=== PATIENT | female | born 1955 | race African-American/Black ===

== ENCOUNTER 2017-07-01 18:10 | Inpatient (IN) ==
[2017-07-01] MEDS ORDERED: levETIRAcetam 500 MG TABLET PO STA (18:56)
[2017-07-01 19:09] LABS: Basophils % 0.2 % (0.0-0.8); Eosinophils % 0.1 % (0.00-10.9); Hematocrit 28.7 VOL% (35.7-47.0); Hemoglobin 9.6 GM/DL (12.0-16.0); Immature Granulocytes % 0.5 %; Immature Granulocytes Absolute 0.12 #; Lymphocytes # 0.8 10*3/uL (1.4-4.0); Lymphocytes % 3.3 % (21.3-54.2); Mean Corpuscular HGB Conc 33.4 GM/DL (32-36); Mean Corpuscular Hemoglobin 31 PG (27-34); Mean Corpuscular Volume 91.1 FL (87-102); Mean Platelet Volume 8.4 FL (9.6-12.0); Monocytes # 0.5 10*3/uL (0.11-0.8); Neutrophils # 22.6 10*3/uL (1.4-7.4); Neutrophils % 93.9 % (38.7-73.9); Platelet Count 300 T/CUMM (130-400); Red Blood Count 3.15 MC/CUMM (3.8-5.5); Red Cell Distribution Width 15.9 % (9.3-17.3); White Blood Count 24.1 T/CUMM (4-12)
[2017-07-01 19:46] LABS: Albumin 2.6 G/DL (3.4-5.0); Bilirubin,Total 0.4 MG/DL (0.2-1.0); Calcium 7.8 MG/DL (8.5-10.1); Osmolality,Calculated 275.7 MOS/KG (273-304); Potassium 3.9 MMOL/L (3.5-5.1); Total Protein 7.7 G/DL (6.4-8.3)
[2017-07-01] MEDS ORDERED: VANCOMYCIN INJ 1,000 MG in SODIUM CHLORIDE 0.9% 250 ML IV STA (20:02)
[2017-07-01] MEDS ORDERED: CEFEPIME 2,000 MG in SODIUM CHLORIDE 0.9% 100 ML IV STA (20:02)
[2017-07-01] MEDS ORDERED: SODIUM CHLORIDE 0.9% 2,950 ML IV ONE (20:17)
[2017-07-01 20:18] LABS: Apearance,Urine Slightly Hazy (Clear); Bacteria,Urine Many /HPF (Few); Bilirubin,Urine Negative (Negative); Blood, Urine Moderate mg/dL (Negative); Glucose,Urine (UA) Negative (Negative); Ketones,Urine Negative (Negative); Mucus,Urine Few /LPF (Occasional); Nitrite,Urine Positive (Negative); Protein,Urine 30 MG/DL; RBC,Urine 1 /HPF (0-4); Squamous Epithelial Cell,Urine Occasional /HPF (0-10); Urine Color Yellow (Yellow); Urine Specific Gravity 1.019 (1.001-1.035); WBC,Urine 21 /HPF (0-6)
[2017-07-01] MEDS ORDERED: ONDANSETRON 4 MG/2 ML VIAL IV PRN (20:19)
[2017-07-01 20:59] LABS: Band Neutrophils 4 % (0-10); Lymphocytes 7 % (20-55); Platelet Estimate Normal; Segmented Neutrophils 89 % (50-85); Total Cells Counted 100
[2017-07-01] MEDS ORDERED: VANCOMYCIN 1,000 MG VIAL ONE (21:11)
[2017-07-01] MEDS: SODIUM CHLORIDE 0.9% 1,000 ML IV SCH (21:30)
[2017-07-02] MEDS: ACETAMINOPHEN 325 MG TABLET PO PRN
[2017-07-02] MEDS: SODIUM CHLORIDE 0.9% 1,000 ML IV SCH ×2 (06:27→16:57)
[2017-07-02] MEDS: PANTOPRAZOLE 40 MG TABLET PO SCH (09:06)
[2017-07-02] MEDS ORDERED: FUROSEMIDE 40 MG TABLET PO PRN (16:57)
[2017-07-02] MEDS: VENLAFAXINE 100 MG TABLET PO SCH (17:24)
[2017-07-02] MEDS: DEXT 5% NACL 0.45% KCL 10 MEQ 10 MEQ/1,000 ML BAG IV SCH (17:24)
[2017-07-02 19:06] LABS: INR 1.3; PT Patient Result 13.3 SECS; Partial Thromboplastin Time 33.6 SECS (0-40)
[2017-07-02] MEDS: levETIRAcetam 250 MG TABLET PO SCH (20:35)
[2017-07-02] MEDS: PHENYTOIN ER 100 MG CAPSULE PO SCH (20:35)
[2017-07-02] MEDS: TOPIRAMATE 100 MG TABLET PO SCH (20:35)
[2017-07-03] MEDS: WARFARIN 5 MG TABLET PO SCH ×2 (00:56→15:15)
[2017-07-03] MEDS: DEXT 5% NACL 0.45% KCL 10 MEQ 10 MEQ/1,000 ML BAG IV SCH ×2 (02:48→21:37)
[2017-07-03 07:20] LABS: Basophils % 0.1 % (0.0-0.8); Eosinophils # 0.2 10*3/uL (0.0-0.87); Eosinophils % 1.4 % (0.00-10.9); Hematocrit 25.9 VOL% (35.7-47.0); Hemoglobin 8.6 GM/DL (12.0-16.0); Immature Granulocytes % 0.7 %; Immature Granulocytes Absolute 0.09 #; Lymphocytes # 1.5 10*3/uL (1.4-4.0); Lymphocytes % 11.1 % (21.3-54.2); Mean Corpuscular HGB Conc 33.2 GM/DL (32-36); Mean Corpuscular Hemoglobin 30 PG (27-34); Mean Corpuscular Volume 90.6 FL (87-102); Mean Platelet Volume 8.7 FL (9.6-12.0); Monocytes # 0.7 10*3/uL (0.11-0.8); Monocytes % 5.1 % (1.7-12.7); Neutrophils # 11.1 10*3/uL (1.4-7.4); Neutrophils % 81.6 % (38.7-73.9); Platelet Count 262 T/CUMM (130-400); Red Blood Count 2.86 MC/CUMM (3.8-5.5); Red Cell Distribution Width 15.9 % (9.3-17.3); White Blood Count 13.6 T/CUMM (4-12)
[2017-07-03 08:03] LABS: Albumin 2.1 G/DL (3.4-5.0); Bilirubin,Total 0.5 MG/DL (0.2-1.0); Calcium 7.5 MG/DL (8.5-10.1); Free T4 (Free Thyroxine) 1.19 NG/DL (0.76-1.46); Osmolality,Calculated 278.3 MOS/KG (273-304); Potassium 3.7 MMOL/L (3.5-5.1); Thyroid Stimulating Hormone 0.76 uIU/ml (0.358-3.74); Total Protein 6.9 G/DL (6.4-8.3)
[2017-07-03] MEDS: TOPIRAMATE 100 MG TABLET PO SCH ×2 (10:19→20:51)
[2017-07-03] MEDS: VENLAFAXINE 100 MG TABLET PO SCH ×2 (10:19→17:59)
[2017-07-03] MEDS: levETIRAcetam 250 MG TABLET PO SCH ×2 (10:20→20:51)
[2017-07-03] MEDS: PANTOPRAZOLE 40 MG TABLET PO SCH (10:20)
[2017-07-03] MEDS: PHENYTOIN ER 100 MG CAPSULE PO SCH ×3 (10:20→20:51)
[2017-07-03 10:41] LABS: INR 1.1; PT Patient Result 11.3 SECS
[2017-07-03] MEDS: LEVOFLOXACIN INJ 500 MG in PREMIX 1 EACH IV SCH (13:01)
[2017-07-03] MEDS ORDERED: WARFARIN 5 MG TABLET PO ONE (14:00)
[2017-07-03] MEDS ORDERED: ALBUTEROL/IPRATROPIUM 3 ML NEB RESP TX PRN (18:24)
[2017-07-03] MEDS: ALBUTEROL/IPRATROPIUM 3 ML NEB RESP TX SCH (20:45)
[2017-07-04] MEDS: ALBUTEROL/IPRATROPIUM 3 ML NEB RESP TX SCH ×7 (00:21→23:05)
[2017-07-04 03:22] LABS: Calcium 7.8 MG/DL (8.5-10.1); Osmolality,Calculated 277.4 MOS/KG (273-304)
[2017-07-04 03:52] LABS: Basophils % 0.2 % (0.0-0.8); Eosinophils # 0.2 10*3/uL (0.0-0.87); Eosinophils % 1.6 % (0.00-10.9); Hemoglobin 8.8 GM/DL (12.0-16.0); Immature Granulocytes % 0.5 %; Immature Granulocytes Absolute 0.05 #; Lymphocytes # 1.1 10*3/uL (1.4-4.0); Lymphocytes % 10.5 % (21.3-54.2); Mean Corpuscular HGB Conc 32.6 GM/DL (32-36); Mean Corpuscular Hemoglobin 30 PG (27-34); Mean Corpuscular Volume 91.2 FL (87-102); Monocytes # 0.7 10*3/uL (0.11-0.8); Monocytes % 6.3 % (1.7-12.7); Neutrophils # 8.6 10*3/uL (1.4-7.4); Neutrophils % 80.9 % (38.7-73.9); Platelet Count 299 T/CUMM (130-400); Red Blood Count 2.96 MC/CUMM (3.8-5.5); Red Cell Distribution Width 15.9 % (9.3-17.3); White Blood Count 10.7 T/CUMM (4-12)
[2017-07-04 05:01] LABS: INR 1.1; PT Patient Result 11.4 SECS
[2017-07-04] MEDS: levETIRAcetam 250 MG TABLET PO SCH ×2 (08:40→21:24)
[2017-07-04] MEDS: TOPIRAMATE 100 MG TABLET PO SCH ×2 (08:40→21:26)
[2017-07-04] MEDS: PHENYTOIN ER 100 MG CAPSULE PO SCH ×3 (08:41→21:24)
[2017-07-04] MEDS: VENLAFAXINE 100 MG TABLET PO SCH ×2 (08:41→17:12)
[2017-07-04] MEDS: PANTOPRAZOLE 40 MG TABLET PO SCH (08:41)
[2017-07-04] MEDS: ACETAMINOPHEN 325 MG TABLET PO PRN (13:25)
[2017-07-04] MEDS ORDERED: WARFARIN 5 MG TABLET PO ONE (16:11)
[2017-07-04] MEDS: LEVOFLOXACIN 500 MG TABLET PO SCH (17:09)
[2017-07-04] MEDS: WARFARIN 7.5 MG TABLET PO SCH (17:09)
[2017-07-05] MEDS: LEVOFLOXACIN INJ 500 MG in PREMIX 1 EACH IV SCH (02:22)
[2017-07-05 07:31] LABS: Basophils % 0.5 % (0.0-0.8); Eosinophils # 0.2 10*3/uL (0.0-0.87); Eosinophils % 3.2 % (0.00-10.9); Hemoglobin 10.2 GM/DL (12.0-16.0); Immature Granulocytes % 0.6 %; Immature Granulocytes Absolute 0.04 #; Lymphocytes # 1.3 10*3/uL (1.4-4.0); Mean Corpuscular HGB Conc 31.9 GM/DL (32-36); Mean Corpuscular Hemoglobin 30 PG (27-34); Mean Corpuscular Volume 92.8 FL (87-102); Mean Platelet Volume 9.8 FL (9.6-12.0); Monocytes # 0.6 10*3/uL (0.11-0.8); Monocytes % 8.6 % (1.7-12.7); Neutrophils # 4.4 10*3/uL (1.4-7.4); Neutrophils % 67.1 % (38.7-73.9); Platelet Count 274 T/CUMM (130-400); Red Blood Count 3.45 MC/CUMM (3.8-5.5); White Blood Count 6.5 T/CUMM (4-12)
[2017-07-05 07:36] LABS: Calcium 7.9 MG/DL (8.5-10.1); Osmolality,Calculated 273.7 MOS/KG (273-304); Potassium 4.9 MMOL/L (3.5-5.1)
[2017-07-05 07:43] LABS: Platelet Estimate Normal
[2017-07-05] MEDS: ALBUTEROL/IPRATROPIUM 3 ML NEB RESP TX SCH ×4 (08:13→20:18)
[2017-07-05] MEDS: VENLAFAXINE 100 MG TABLET PO SCH ×2 (08:45→17:40)
[2017-07-05] MEDS: levETIRAcetam 250 MG TABLET PO SCH ×2 (09:46→21:31)
[2017-07-05] MEDS: PHENYTOIN ER 100 MG CAPSULE PO SCH ×3 (09:46→21:33)
[2017-07-05] MEDS: LEVOFLOXACIN 500 MG TABLET PO SCH (09:46)
[2017-07-05] MEDS: TOPIRAMATE 100 MG TABLET PO SCH ×2 (09:47→21:32)
[2017-07-05] MEDS: PANTOPRAZOLE 40 MG TABLET PO SCH (09:47)
[2017-07-05 10:17] LABS: INR 1.3; PT Patient Result 13.2 SECS
[2017-07-05] MEDS: WARFARIN 7.5 MG TABLET PO SCH (18:20)
[2017-07-05] MEDS: ACETAMINOPHEN 325 MG TABLET PO PRN (21:32)
[2017-07-06] MEDS: ALBUTEROL/IPRATROPIUM 3 ML NEB RESP TX SCH ×4 (00:11→13:34)
[2017-07-06 08:24] LABS: INR 1.5; PT Patient Result 15.6 SECS
[2017-07-06] MEDS: levETIRAcetam 250 MG TABLET PO SCH (10:20)
[2017-07-06] MEDS: VENLAFAXINE 100 MG TABLET PO SCH (10:20)
[2017-07-06] MEDS: PHENYTOIN ER 100 MG CAPSULE PO SCH (10:21)
[2017-07-06] MEDS: TOPIRAMATE 100 MG TABLET PO SCH (10:21)
[2017-07-06] MEDS: PANTOPRAZOLE 40 MG TABLET PO SCH (10:21)
[2017-07-06] MEDS: LEVOFLOXACIN 500 MG TABLET PO SCH (10:21)
[2017-07-06 11:44] VITALS: BP 106/57
== END 2017-07-06 13:09 | disposition home health service (06) | DRG 872 ==
LOC: EDUNIT# → EDBD → N.ED 18:10 → N.EDINP 20:19 → N.2E 21:24
PROVIDERS: ADMIT Family Medicine; ATTEND Family Medicine

== ENCOUNTER 2017-08-27 16:30 | Inpatient (IN) ==
[2017-08-27] MEDS ORDERED: PHENYTOIN INJ 500 MG in SODIUM CHLORIDE 0.9% 100 ML IV STA (16:51)
[2017-08-27] MEDS ORDERED: PHENYTOIN 250 MG/5 ML VIAL IV ONE (17:29)
[2017-08-27 17:59] LABS: Basophils % 0.2 % (0.0-0.8); Hematocrit 36.8 VOL% (35.7-47.0); Hemoglobin 11.5 GM/DL (12.0-16.0); Immature Granulocytes % 1.4 %; Immature Granulocytes Absolute 0.34 #; Lymphocytes # 0.6 10*3/uL (1.4-4.0); Lymphocytes % 2.4 % (21.3-54.2); Mean Corpuscular HGB Conc 31.3 GM/DL (32-36); Mean Corpuscular Hemoglobin 29 PG (27-34); Mean Corpuscular Volume 92.2 FL (87-102); Mean Platelet Volume 9.3 FL (9.6-12.0); Monocytes # 0.4 10*3/uL (0.11-0.8); Monocytes % 1.5 % (1.7-12.7); Neutrophils # 22.3 10*3/uL (1.4-7.4); Neutrophils % 94.5 % (38.7-73.9); Platelet Count 229 T/CUMM (130-400); Red Blood Count 3.99 MC/CUMM (3.8-5.5); Red Cell Distribution Width 15.5 % (9.3-17.3); White Blood Count 23.6 T/CUMM (4-12)
[2017-08-27] MEDS ORDERED: ALBUTEROL/IPRATROPIUM 3 ML NEB RESP TX STA (18:08)
[2017-08-27] MEDS ORDERED: LEVOFLOXACIN INJ 750 MG in PREMIX 1 EACH IV STA (18:08)
[2017-08-27 18:21] LABS: Alanine Aminotransferase 34 U/L (13-56); Alkaline Phosphatase 275 U/L (45-117); Aspartate Amino Transferase 78 U/L (0-37); Bilirubin,Total < 0.39 MG/DL (0.2-1.0); Blood Urea Nitrogen 13 MG/DL (7-18); Calcium 7.9 MG/DL (8.5-10.1); Glucose 168 MG/DL (74-106); Potassium 3.5 MMOL/L (3.5-5.1); Sodium 136 MMOL/L (136-145); Total Protein 8.7 G/DL (6.4-8.3)
[2017-08-27] MEDS ORDERED: LEVOFLOXACIN INJ 150 ML IV ONE (18:28)
[2017-08-27 18:36] LABS: CKMB % 2.3 %
[2017-08-27 18:38] LABS: Troponin I Only 0.497 NG/ML (0.00-0.045)
[2017-08-27] MEDS ORDERED: NITROGLYCERIN 2% OINT 1 INCH/GM PACK TOP STA (19:31)
[2017-08-27] MEDS ORDERED: NITROGLYCERIN 2% OINT 1 INCH/GM PACK TOP ONE (19:42)
[2017-08-27 19:49] LABS: Apearance,Urine Slightly Hazy (Clear); Bilirubin,Urine Negative (Negative); Blood, Urine Large mg/dL (Negative); Glucose,Urine (UA) Negative (Negative); Hyaline Casts,Urine 1 /LPF (0-3); Ketones,Urine Negative (Negative); Mucus,Urine Occasional /LPF (Occasional); Nitrite,Urine Negative (Negative); Protein,Urine 30 MG/DL; RBC,Urine 43 /HPF (0-4); Squamous Epithelial Cell,Urine Occasional /HPF (0-10); Urine Color Yellow (Yellow); Urine Urobilinogen < 2.0 EU/DL (0.2-1.0); WBC,Urine <1 /HPF (0-6)
[2017-08-27 19:56] LABS: Barbiturates Screen,Urine Negative (Negative); Benzodiazepines Screen,Urine Negative (Negative); Cannabinoid Screen,Urine Negative (Negative); Opiate Screen,Urine Negative (Negative); Phencyclidine Screen,Urine Negative (Negative)
[2017-08-27] MEDS ORDERED: ONDANSETRON 4 MG/2 ML VIAL IV PRN (21:06)
[2017-08-27 21:10] LABS: Band Neutrophils 5 % (0-10); Lymphocytes 2 % (20-55); Platelet Estimate Normal; Segmented Neutrophils 90 % (50-85); Total Cells Counted 100
[2017-08-27] MEDS: levETIRAcetam 500 MG TABLET PO SCH (21:45)
[2017-08-27] MEDS: PHENYTOIN ER 100 MG CAPSULE PO SCH (21:45)
[2017-08-28] MEDS: NITROGLYCERIN 2% OINT 1 INCH/GM PACK TOP SCH ×5 (00:19→23:43)
[2017-08-28] MEDS: ALBUTEROL/IPRATROPIUM 3 ML NEB RESP TX SCH ×4 (00:48→20:49)
[2017-08-28 02:22] LABS: Basophils % 0.1 % (0.0-0.8); Hematocrit 34.9 VOL% (35.7-47.0); Hemoglobin 10.8 GM/DL (12.0-16.0); Immature Granulocytes % 1.7 %; Immature Granulocytes Absolute 0.37 #; Lymphocytes # 0.9 10*3/uL (1.4-4.0); Mean Corpuscular HGB Conc 30.9 GM/DL (32-36); Mean Corpuscular Hemoglobin 28 PG (27-34); Mean Corpuscular Volume 89.3 FL (87-102); Monocytes # 0.7 10*3/uL (0.11-0.8); Monocytes % 3.1 % (1.7-12.7); Neutrophils # 19.8 10*3/uL (1.4-7.4); Neutrophils % 91.1 % (38.7-73.9); Platelet Count 221 T/CUMM (130-400); Red Blood Count 3.91 MC/CUMM (3.8-5.5); Red Cell Distribution Width 15.6 % (9.3-17.3); White Blood Count 21.8 T/CUMM (4-12)
[2017-08-28 02:38] LABS: INR 2.9
[2017-08-28 03:18] LABS: Albumin 2.7 G/DL (3.4-5.0); Bilirubin,Direct 0.12 MG/DL (0.0-0.20); Bilirubin,Indirect 0.7 MG/DL (0.0-1.0); Bilirubin,Total 0.8 MG/DL (0.2-1.0); Osmolality,Calculated 276.5 MOS/KG (273-304); Potassium 3.6 MMOL/L (3.5-5.1); Risk Ratio 1.52; Total Protein 7.6 G/DL (6.4-8.3)
[2017-08-28 03:24] LABS: CKMB % 1.6 %
[2017-08-28 03:25] LABS: CKMB % 1.7 %
[2017-08-28 03:36] LABS: Troponin I Only 0.912 NG/ML (0.00-0.045)
[2017-08-28 03:38] LABS: Troponin I Only 0.949 NG/ML (0.00-0.045)
[2017-08-28] MEDS ORDERED: MORPHINE 2 MG/1 ML SYRINGE IV ONE (04:30)
[2017-08-28] MEDS ORDERED: ASPIRIN CHEW 81 MG TABLET PO ONE (04:30)
[2017-08-28] MEDS ORDERED: METOPROLOL TARTRATE 25 MG TABLET PO ONE (04:30)
[2017-08-28 04:33] LABS: Band Neutrophils 10 % (0-10); Lymphocytes 1 % (20-55); Segmented Neutrophils 86 % (50-85); Total Cells Counted 100
[2017-08-28 04:34] LABS: Anisocytosis 1+; Hypochromasia 1+; Platelet Estimate Normal
[2017-08-28] MEDS ORDERED: VENLAFAXINE 100 MG TABLET PO SCH (08:00)
[2017-08-28] MEDS: levETIRAcetam 500 MG TABLET PO SCH ×2 (08:50→21:05)
[2017-08-28] MEDS: PHENYTOIN ER 100 MG CAPSULE PO SCH ×3 (08:50→21:06)
[2017-08-28] MEDS: TOPIRAMATE 100 MG TABLET PO SCH (08:50)
[2017-08-28] MEDS: ASPIRIN EC 81 MG TABLET PO SCH (08:51)
[2017-08-28] MEDS ORDERED: PHENYTOIN ER 100 MG CAPSULE PO SCH (09:00)
[2017-08-28] MEDS ORDERED: ASPIRIN 325 MG TABLET PO SCH (09:00)
[2017-08-28] MEDS ORDERED: NON-FORMULARY MEDICATION (Levetiracetam [Keppra] 750 MG) PO SCH (09:00)
[2017-08-28] MEDS: METOPROLOL TARTRATE 25 MG TABLET PO SCH ×2 (09:11→21:06)
[2017-08-28] MEDS ORDERED: SODIUM CHLORIDE 0.45% 500 ML IV ONE (12:03)
[2017-08-28] MEDS: SODIUM CHLORIDE 0.45% 1,000 ML IV SCH ×2 (12:56→21:05)
[2017-08-28] MEDS: methylPREDNISolone SOD SUC 40 MG/1 ML VIAL IV SCH ×2 (14:09→21:05)
[2017-08-28] MEDS: WARFARIN 5 MG TABLET PO SCH (15:37)
[2017-08-28] MEDS ORDERED: WARFARIN 7.5 MG TABLET PO SCH (16:00)
[2017-08-28 16:50] LABS: CKMB % 0.6 %
[2017-08-28 16:56] LABS: Troponin I Only 0.526 NG/ML (0.00-0.045)
[2017-08-28] MEDS: LEVOFLOXACIN INJ 500 MG in PREMIX 1 EACH IV SCH (17:54)
[2017-08-28] MEDS ORDERED: LEVOFLOXACIN INJ 750 MG in PREMIX 1 EACH IV SCH (18:00)
[2017-08-28 22:39] LABS: CKMB % 0.4 %
[2017-08-28 22:48] LABS: Troponin I Only 0.384 NG/ML (0.00-0.045)
[2017-08-29] MEDS: ALBUTEROL/IPRATROPIUM 3 ML NEB RESP TX SCH ×4 (00:53→21:09)
[2017-08-29] MEDS: methylPREDNISolone SOD SUC 40 MG/1 ML VIAL IV SCH ×3 (04:39→22:12)
[2017-08-29 05:27] LABS: Basophils % 0.1 % (0.0-0.8); Hematocrit 30.6 VOL% (35.7-47.0); Hemoglobin 9.8 GM/DL (12.0-16.0); Immature Granulocytes % 1.1 %; Immature Granulocytes Absolute 0.21 #; Lymphocytes # 1.3 10*3/uL (1.4-4.0); Lymphocytes % 7.1 % (21.3-54.2); Mean Corpuscular Hemoglobin 28 PG (27-34); Mean Corpuscular Volume 88.7 FL (87-102); Mean Platelet Volume 10.2 FL (9.6-12.0); Monocytes # 0.9 10*3/uL (0.11-0.8); Monocytes % 4.8 % (1.7-12.7); Neutrophils # 16.5 10*3/uL (1.4-7.4); Neutrophils % 86.9 % (38.7-73.9); Platelet Count 193 T/CUMM (130-400); Red Blood Count 3.45 MC/CUMM (3.8-5.5); Red Cell Distribution Width 15.7 % (9.3-17.3)
[2017-08-29] MEDS: NITROGLYCERIN 2% OINT 1 INCH/GM PACK TOP SCH ×4 (05:33→21:17)
[2017-08-29 05:51] LABS: INR 2.4
[2017-08-29 06:00] LABS: PT Patient Result 24.2 SECS
[2017-08-29 06:02] LABS: Albumin 2.4 G/DL (3.4-5.0); Bilirubin,Total 0.6 MG/DL (0.2-1.0); Calcium 7.8 MG/DL (8.5-10.1); Osmolality,Calculated 280.4 MOS/KG (273-304); Potassium 3.6 MMOL/L (3.5-5.1); Total Protein 6.9 G/DL (6.4-8.3)
[2017-08-29 06:55] LABS: Hypochromasia 1+; Lymphocytes 6 % (20-55); Ovalocytes Slight; Platelet Estimate Normal; Segmented Neutrophils 89 % (50-85); Total Cells Counted 100
[2017-08-29] MEDS: SODIUM CHLORIDE 0.45% 1,000 ML IV SCH ×2 (07:05→18:00)
[2017-08-29] MEDS: TOPIRAMATE 100 MG TABLET PO SCH (09:00)
[2017-08-29] MEDS: PHENYTOIN ER 100 MG CAPSULE PO SCH ×3 (09:01→22:12)
[2017-08-29] MEDS: levETIRAcetam 500 MG TABLET PO SCH ×2 (09:01→22:12)
[2017-08-29] MEDS: METOPROLOL TARTRATE 25 MG TABLET PO SCH ×2 (09:01→22:13)
[2017-08-29] MEDS: ASPIRIN EC 81 MG TABLET PO SCH (09:01)
[2017-08-29] MEDS: WARFARIN 5 MG TABLET PO SCH (16:42)
[2017-08-29] MEDS: LEVOFLOXACIN INJ 500 MG in PREMIX 1 EACH IV SCH (18:14)
[2017-08-30] MEDS: NITROGLYCERIN 2% OINT 1 INCH/GM PACK TOP SCH ×4 (00:07→17:16)
[2017-08-30] MEDS: ALBUTEROL/IPRATROPIUM 3 ML NEB RESP TX SCH ×4 (01:52→20:18)
[2017-08-30] MEDS: methylPREDNISolone SOD SUC 40 MG/1 ML VIAL IV SCH ×3 (04:22→20:42)
[2017-08-30] MEDS: SODIUM CHLORIDE 0.45% 1,000 ML IV SCH ×4 (04:28→20:46)
[2017-08-30 05:51] LABS: Basophils % 0.2 % (0.0-0.8); Hematocrit 31.6 VOL% (35.7-47.0); Immature Granulocytes % 0.6 %; Immature Granulocytes Absolute 0.08 #; Lymphocytes # 1.5 10*3/uL (1.4-4.0); Lymphocytes % 11.8 % (21.3-54.2); Mean Corpuscular HGB Conc 31.6 GM/DL (32-36); Mean Corpuscular Hemoglobin 28 PG (27-34); Mean Corpuscular Volume 89.3 FL (87-102); Mean Platelet Volume 9.5 FL (9.6-12.0); Monocytes # 0.6 10*3/uL (0.11-0.8); Monocytes % 5.2 % (1.7-12.7); Neutrophils # 10.2 10*3/uL (1.4-7.4); Neutrophils % 82.2 % (38.7-73.9); Platelet Count 205 T/CUMM (130-400); Red Blood Count 3.54 MC/CUMM (3.8-5.5); Red Cell Distribution Width 15.7 % (9.3-17.3); White Blood Count 12.4 T/CUMM (4-12)
[2017-08-30 05:59] LABS: INR 1.4
[2017-08-30 06:30] LABS: Albumin 2.3 G/DL (3.4-5.0); Bilirubin,Total 0.8 MG/DL (0.2-1.0); Calcium 8.1 MG/DL (8.5-10.1); Osmolality,Calculated 284.1 MOS/KG (273-304); Potassium 4.1 MMOL/L (3.5-5.1)
[2017-08-30 06:36] LABS: CKMB % 0.2 %
[2017-08-30] MEDS ORDERED: CYANOCOBALAMIN 1000 MCG/1 ML VIAL IM ONE (09:00)
[2017-08-30] MEDS: levETIRAcetam 500 MG TABLET PO SCH ×2 (09:30→20:41)
[2017-08-30] MEDS: PHENYTOIN ER 100 MG CAPSULE PO SCH ×3 (09:30→20:41)
[2017-08-30] MEDS: TOPIRAMATE 100 MG TABLET PO SCH (09:31)
[2017-08-30] MEDS: ASPIRIN EC 81 MG TABLET PO SCH (09:31)
[2017-08-30] MEDS: METOPROLOL TARTRATE 50 MG TABLET PO SCH ×3 (09:31→22:16)
[2017-08-30] MEDS: WARFARIN 5 MG TABLET PO SCH (16:15)
[2017-08-30] MEDS: LEVOFLOXACIN INJ 500 MG in PREMIX 1 EACH IV SCH (17:56)
[2017-08-31] MEDS: ACETAMINOPHEN 325 MG TABLET PO PRN ×2 (00:28→22:00)
[2017-08-31] MEDS: SODIUM CHLORIDE 0.45% 1,000 ML IV SCH ×4 (00:33→17:36)
[2017-08-31] MEDS: NITROGLYCERIN 2% OINT 1 INCH/GM PACK TOP SCH ×4 (00:33→17:35)
[2017-08-31] MEDS: ALBUTEROL/IPRATROPIUM 3 ML NEB RESP TX SCH ×4 (03:05→20:44)
[2017-08-31] MEDS: methylPREDNISolone SOD SUC 40 MG/1 ML VIAL IV SCH ×3 (05:11→22:02)
[2017-08-31 05:24] LABS: Basophils % 0.2 % (0.0-0.8); Eosinophils % 0.1 % (0.00-10.9); Hematocrit 31.4 VOL% (35.7-47.0); Hemoglobin 9.8 GM/DL (12.0-16.0); Immature Granulocytes % 0.5 %; Immature Granulocytes Absolute 0.04 #; Lymphocytes # 2.5 10*3/uL (1.4-4.0); Lymphocytes % 29.7 % (21.3-54.2); Mean Corpuscular HGB Conc 31.2 GM/DL (32-36); Mean Corpuscular Hemoglobin 28 PG (27-34); Mean Corpuscular Volume 89.5 FL (87-102); Mean Platelet Volume 9.1 FL (9.6-12.0); Monocytes # 0.5 10*3/uL (0.11-0.8); Monocytes % 6.5 % (1.7-12.7); Neutrophils # 5.3 10*3/uL (1.4-7.4); Platelet Count 228 T/CUMM (130-400); Red Blood Count 3.51 MC/CUMM (3.8-5.5); Red Cell Distribution Width 15.9 % (9.3-17.3); White Blood Count 8.3 T/CUMM (4-12)
[2017-08-31 05:36] LABS: INR 1.4; PT Patient Result 14.9 SECS
[2017-08-31 06:00] LABS: Albumin 2.2 G/DL (3.4-5.0); Bilirubin,Total 0.5 MG/DL (0.2-1.0); Calcium 7.8 MG/DL (8.5-10.1); Osmolality,Calculated 276.5 MOS/KG (273-304); Potassium 4.5 MMOL/L (3.5-5.1); Total Protein 6.9 G/DL (6.4-8.3)
[2017-08-31] MEDS: METOPROLOL TARTRATE 50 MG TABLET PO SCH ×2 (08:49→22:01)
[2017-08-31] MEDS: ASPIRIN EC 81 MG TABLET PO SCH (08:49)
[2017-08-31] MEDS: levETIRAcetam 500 MG TABLET PO SCH ×2 (08:51→22:01)
[2017-08-31] MEDS: PHENYTOIN ER 100 MG CAPSULE PO SCH ×3 (08:51→22:01)
[2017-08-31] MEDS: TOPIRAMATE 100 MG TABLET PO SCH (08:51)
[2017-08-31] MEDS: WARFARIN 5 MG TABLET PO SCH (15:14)
[2017-08-31] MEDS: LEVOFLOXACIN INJ 500 MG in PREMIX 1 EACH IV SCH (18:15)
[2017-09-01] MEDS: ALBUTEROL/IPRATROPIUM 3 ML NEB RESP TX SCH ×4 (00:15→20:33)
[2017-09-01] MEDS: NITROGLYCERIN 2% OINT 1 INCH/GM PACK TOP SCH ×4 (00:37→17:39)
[2017-09-01] MEDS: SODIUM CHLORIDE 0.45% 1,000 ML IV SCH ×3 (00:37→12:49)
[2017-09-01] MEDS: ACETAMINOPHEN 325 MG TABLET PO PRN (02:29)
[2017-09-01] MEDS: methylPREDNISolone SOD SUC 40 MG/1 ML VIAL IV SCH ×3 (05:10→22:36)
[2017-09-01 05:53] LABS: Basophils % 0.6 % (0.0-0.8); Eosinophils % 0.6 % (0.00-10.9); Hematocrit 34.4 VOL% (35.7-47.0); Immature Granulocytes Absolute 0.07 #; Lymphocytes # 1.9 10*3/uL (1.4-4.0); Lymphocytes % 27.1 % (21.3-54.2); Mean Corpuscular Hemoglobin 28 PG (27-34); Mean Corpuscular Volume 88.2 FL (87-102); Monocytes # 0.8 10*3/uL (0.11-0.8); Monocytes % 11.7 % (1.7-12.7); Neutrophils # 4.2 10*3/uL (1.4-7.4); Platelet Count 267 T/CUMM (130-400); White Blood Count 7.1 T/CUMM (4-12)
[2017-09-01 06:28] LABS: Albumin 2.4 G/DL (3.4-5.0); Bilirubin,Total 0.4 MG/DL (0.2-1.0); Calcium 7.8 MG/DL (8.5-10.1); Osmolality,Calculated 282.3 MOS/KG (273-304); Potassium 4.3 MMOL/L (3.5-5.1)
[2017-09-01] MEDS ORDERED: WARFARIN 2.5 MG TABLET PO ONE (08:29)
[2017-09-01] MEDS: levETIRAcetam 500 MG TABLET PO SCH ×2 (09:01→22:35)
[2017-09-01] MEDS: PHENYTOIN ER 100 MG CAPSULE PO SCH ×3 (09:02→22:36)
[2017-09-01] MEDS: ASPIRIN EC 81 MG TABLET PO SCH (09:02)
[2017-09-01] MEDS: TOPIRAMATE 100 MG TABLET PO SCH (09:02)
[2017-09-01] MEDS: METOPROLOL TARTRATE 50 MG TABLET PO SCH ×2 (09:02→22:37)
[2017-09-01] MEDS: WARFARIN 5 MG TABLET PO SCH (15:16)
[2017-09-01] MEDS: LEVOFLOXACIN INJ 500 MG in PREMIX 1 EACH IV SCH (17:39)
[2017-09-01] MEDS ORDERED: ZIPRASIDONE 20 MG/1 ML VIAL IM ONE (19:26)
[2017-09-02] MEDS: ALBUTEROL/IPRATROPIUM 3 ML NEB RESP TX SCH ×4 (01:04→21:33)
[2017-09-02] MEDS: NITROGLYCERIN 2% OINT 1 INCH/GM PACK TOP SCH ×4 (01:47→18:49)
[2017-09-02 05:20] LABS: Basophils % 0.7 % (0.0-0.8); Eosinophils % 0.3 % (0.00-10.9); Hematocrit 30.7 VOL% (35.7-47.0); Hemoglobin 9.9 GM/DL (12.0-16.0); Immature Granulocytes % 1.3 %; Immature Granulocytes Absolute 0.08 #; Lymphocytes # 2.3 10*3/uL (1.4-4.0); Lymphocytes % 38.6 % (21.3-54.2); Mean Corpuscular HGB Conc 32.2 GM/DL (32-36); Mean Corpuscular Hemoglobin 29 PG (27-34); Mean Corpuscular Volume 88.5 FL (87-102); Mean Platelet Volume 9.3 FL (9.6-12.0); Monocytes # 0.9 10*3/uL (0.11-0.8); Monocytes % 15.9 % (1.7-12.7); Neutrophils # 2.6 10*3/uL (1.4-7.4); Neutrophils % 43.2 % (38.7-73.9); Platelet Count 257 T/CUMM (130-400); Red Blood Count 3.47 MC/CUMM (3.8-5.5); Red Cell Distribution Width 16.2 % (9.3-17.3); White Blood Count 5.9 T/CUMM (4-12)
[2017-09-02 05:33] LABS: INR 1.6; PT Patient Result 16.5 SECS
[2017-09-02 05:46] LABS: Eosinophils 1 % (0-10); Giant Platelets Few; Hypochromasia 1+; Lymphocytes 28 % (20-55); Platelet Estimate Adequate; Segmented Neutrophils 59 % (50-85); Total Cells Counted 100
[2017-09-02 05:50] LABS: Calcium 7.4 MG/DL (8.5-10.1); Osmolality,Calculated 285.1 MOS/KG (273-304); Potassium 4.2 MMOL/L (3.5-5.1)
[2017-09-02] MEDS: SODIUM CHLORIDE 0.45% 1,000 ML IV SCH ×2 (05:57→11:02)
[2017-09-02] MEDS: methylPREDNISolone SOD SUC 40 MG/1 ML VIAL IV SCH ×3 (05:58→20:23)
[2017-09-02] MEDS ORDERED: WARFARIN 1 MG TABLET PO ONE (08:21)
[2017-09-02] MEDS: TOPIRAMATE 100 MG TABLET PO SCH (09:00)
[2017-09-02] MEDS: levETIRAcetam 500 MG TABLET PO SCH ×2 (09:00→20:23)
[2017-09-02] MEDS: PHENYTOIN ER 100 MG CAPSULE PO SCH ×3 (09:00→20:24)
[2017-09-02] MEDS: ASPIRIN EC 81 MG TABLET PO SCH (09:01)
[2017-09-02] MEDS: METOPROLOL TARTRATE 50 MG TABLET PO SCH ×2 (09:01→20:24)
[2017-09-02] MEDS: ACETAMINOPHEN 325 MG TABLET PO PRN ×2 (11:01→20:23)
[2017-09-02] MEDS: WARFARIN 5 MG TABLET PO SCH (15:50)
[2017-09-02] MEDS: LEVOFLOXACIN INJ 500 MG in PREMIX 1 EACH IV SCH (17:42)
[2017-09-03] MEDS: ALBUTEROL/IPRATROPIUM 3 ML NEB RESP TX SCH ×3 (02:48→13:12)
[2017-09-03] MEDS: NITROGLYCERIN 2% OINT 1 INCH/GM PACK TOP SCH ×3 (03:15→11:52)
[2017-09-03 05:08] LABS: INR 1.7
[2017-09-03] MEDS: SODIUM CHLORIDE 0.45% 1,000 ML IV SCH ×2 (05:18→08:25)
[2017-09-03] MEDS: methylPREDNISolone SOD SUC 40 MG/1 ML VIAL IV SCH ×2 (05:18→12:57)
[2017-09-03 05:32] LABS: Calcium 7.5 MG/DL (8.5-10.1); Osmolality,Calculated 277.7 MOS/KG (273-304); Potassium 4.8 MMOL/L (3.5-5.1)
[2017-09-03 05:51] LABS: Basophils % 0.5 % (0.0-0.8); Eosinophils % 0.7 % (0.00-10.9); Hemoglobin 10.6 GM/DL (12.0-16.0); Immature Granulocytes % 2.4 %; Immature Granulocytes Absolute 0.15 #; Lymphocytes # 2.8 10*3/uL (1.4-4.0); Lymphocytes % 45.5 % (21.3-54.2); Mean Corpuscular HGB Conc 33.1 GM/DL (32-36); Mean Corpuscular Hemoglobin 29 PG (27-34); Mean Corpuscular Volume 87.2 FL (87-102); Mean Platelet Volume 9.2 FL (9.6-12.0); Monocytes # 0.9 10*3/uL (0.11-0.8); Monocytes % 14.2 % (1.7-12.7); NRBC # 0.05 10*3/uL; Neutrophils # 2.3 10*3/uL (1.4-7.4); Neutrophils % 36.7 % (38.7-73.9); Platelet Count 269 T/CUMM (130-400); Red Blood Count 3.67 MC/CUMM (3.8-5.5); Red Cell Distribution Width 16.8 % (9.3-17.3); White Blood Count 6.1 T/CUMM (4-12)
[2017-09-03 06:04] LABS: Band Neutrophils 6 % (0-10); Eosinophils 1 % (0-10); Lymphocytes 39 % (20-55); Nucleated Red Blood Cells 1 (0-5); Segmented Neutrophils 45 % (50-85); Total Cells Counted 100
[2017-09-03 06:05] LABS: Anisocytosis 1+; Atypical Lymphocytes Few; Poikilocytosis 1+; Target Cells 2+
[2017-09-03] MEDS ORDERED: SODIUM CHLORIDE 0.45% 1,000 ML IV SCH (08:30)
[2017-09-03] MEDS: ASPIRIN EC 81 MG TABLET PO SCH (08:51)
[2017-09-03] MEDS: levETIRAcetam 500 MG TABLET PO SCH (08:51)
[2017-09-03] MEDS: METOPROLOL TARTRATE 50 MG TABLET PO SCH (08:52)
[2017-09-03] MEDS: TOPIRAMATE 100 MG TABLET PO SCH (08:52)
[2017-09-03] MEDS: PHENYTOIN ER 100 MG CAPSULE PO SCH (08:52)
[2017-09-03 11:36] VITALS: BP 99/52
== END 2017-09-03 14:24 | DRG 101 ==
LOC: EDUNIT# → EDBD → N.ED 16:30 → N.EDINP 19:43 → N.TELEN 20:30
PROVIDERS: ADMIT Family Medicine; ATTEND Family Medicine

== ENCOUNTER 2018-11-23 11:29 | Observation (INO) ==
[2018-11-23] MEDS ORDERED: SODIUM CHLORIDE 0.9% 1,000 ML IV STA (11:52)
[2018-11-23 12:27] LABS: Basophils % 0.2 % (0.0-0.8); Eosinophils # 0.1 10*3/uL (0.0-0.87); Eosinophils % 0.8 % (0.00-10.9); Hematocrit 38.7 VOL% (35.7-47.0); Hemoglobin 11.8 GM/DL (12.0-16.0); Immature Granulocytes % 0.5 %; Immature Granulocytes Absolute 0.06 #; Lymphocytes # 0.4 10*3/uL (1.4-4.0); Lymphocytes % 3.4 % (21.3-54.2); Mean Corpuscular HGB Conc 30.5 GM/DL (32-36); Mean Corpuscular Volume 99.5 FL (87-102); Mean Platelet Volume 9.1 FL (9.6-12.0); Neutrophils % 92.1 % (38.7-73.9); Platelet Count 194 T/CUMM (130-400); Red Blood Count 3.89 MC/CUMM (3.8-5.5); Red Cell Distribution Width 15.3 % (9.3-17.3); White Blood Count 11.4 T/CUMM (4-12)
[2018-11-23 12:37] LABS: INR 1.5; PT Patient Result 16.6 SECS; Partial Thromboplastin Time 34.8 SECS (0-40)
[2018-11-23 12:47] LABS: Band Neutrophils 2 % (0-10); Hypochromasia 1+; Lymphocytes 6 % (20-55); Macrocytosis Slight; Segmented Neutrophils 86 % (50-85); Total Cells Counted 100
[2018-11-23 12:48] LABS: Platelet Estimate Adequate
[2018-11-23 12:51] LABS: Alanine Aminotransferase 19 U/L (13-56); Alkaline Phosphatase 262 U/L (45-117); Aspartate Amino Transferase 19 U/L (0-37); Bilirubin,Total < 0.39 MG/DL (0.2-1.0); Blood Urea Nitrogen 16 MG/DL (7-18); Glucose 122 MG/DL (74-106); Osmolality,Calculated 271.1 MOS/KG (273-304); Total Protein 8.2 G/DL (6.4-8.3)
[2018-11-23] MEDS ORDERED: levETIRAcetam 500 MG/5 ML VIAL IV ONE (13:09)
[2018-11-23 13:11] LABS: Apearance,Urine CLEAR (Clear); Bacteria,Urine Occasional /HPF (Few); Bilirubin,Urine Negative (Negative); Blood, Urine Large mg/dL (Negative); Glucose,Urine (UA) Negative (Negative); Ketones,Urine Negative (Negative); Mucus,Urine Occasional /LPF (Occasional); Nitrite,Urine Negative (Negative); Protein,Urine Negative; RBC,Urine 22 /HPF (0-4); Squamous Epithelial Cell,Urine Occasional /HPF (0-10); Urine Color Yellow (Yellow); Urine Specific Gravity 1.012 (1.001-1.035); Urine Urobilinogen < 2.0 EU/DL (0.2-1.0); WBC,Urine 4 /HPF (0-6)
[2018-11-23 13:15] LABS: Barbiturates Screen,Urine Negative (Negative); Benzodiazepines Screen,Urine Negative (Negative); Cannabinoid Screen,Urine Negative (Negative); Opiate Screen,Urine Negative (Negative); Phencyclidine Screen,Urine Negative (Negative)
[2018-11-23] MEDS ORDERED: ONDANSETRON 4 MG/2 ML VIAL IV PRN (17:41)
[2018-11-23] MEDS ORDERED: ACETAMINOPHEN 325 MG TABLET PO PRN (17:41)
[2018-11-23] MEDS ORDERED: FUROSEMIDE 40 MG TABLET PO PRN (18:12)
[2018-11-23] MEDS: SODIUM CHLORIDE 0.9% 1,000 ML IV SCH (19:30)
[2018-11-23] MEDS: PHENYTOIN ER 100 MG CAPSULE PO SCH (20:49)
[2018-11-23] MEDS: DOCUSATE SODIUM 100 MG CAPSULE PO SCH (20:49)
[2018-11-23] MEDS: levETIRAcetam 250 MG TABLET PO SCH (20:49)
[2018-11-23] MEDS: VENLAFAXINE 100 MG TABLET PO SCH (20:49)
[2018-11-23] MEDS: WARFARIN 7.5 MG TABLET PO SCH (20:49)
[2018-11-24] MEDS: SODIUM CHLORIDE 0.9% 1,000 ML IV SCH (03:48)
[2018-11-24 05:06] LABS: Basophils % 0.5 % (0.0-0.8); Eosinophils # 0.4 10*3/uL (0.0-0.87); Eosinophils % 6.4 % (0.00-10.9); Hematocrit 29.6 VOL% (35.7-47.0); Hemoglobin 9.2 GM/DL (12.0-16.0); Immature Granulocytes % 0.3 %; Immature Granulocytes Absolute 0.02 #; Lymphocytes % 16.1 % (21.3-54.2); Mean Corpuscular HGB Conc 31.1 GM/DL (32-36); Mean Corpuscular Volume 98.3 FL (87-102); Mean Platelet Volume 9.7 FL (9.6-12.0); Monocytes % 9.3 % (1.7-12.7); Neutrophils % 67.4 % (38.7-73.9); Platelet Count 146 T/CUMM (130-400); Red Blood Count 3.01 MC/CUMM (3.8-5.5); Red Cell Distribution Width 15.5 % (9.3-17.3); White Blood Count 6.3 T/CUMM (4-12)
[2018-11-24 05:24] LABS: INR 1.6; PT Patient Result 17.8 SECS
[2018-11-24 05:30] LABS: Albumin 2.2 G/DL (3.4-5.0); Bilirubin,Total 0.4 MG/DL (0.2-1.0); Calcium 7.3 MG/DL (8.5-10.1); Free T4 (Free Thyroxine) 0.94 NG/DL (0.76-1.46); Risk Ratio 1.49; Thyroid Stimulating Hormone 0.689 uIU/ml (0.358-3.74); Total Protein 6.3 G/DL (6.4-8.3)
[2018-11-24] MEDS: SODIUM CHLOR 0.9% KCL 20 MEQ 20 MEQ/1,000 ML BAG IV SCH ×2 (08:44→15:32)
[2018-11-24] MEDS: PANTOPRAZOLE 40 MG TABLET PO SCH (08:46)
[2018-11-24] MEDS: TOPIRAMATE 200 MG TABLET PO SCH (08:46)
[2018-11-24] MEDS: PHENYTOIN ER 100 MG CAPSULE PO SCH ×3 (08:46→21:10)
[2018-11-24] MEDS: METOPROLOL TARTRATE 50 MG TABLET PO SCH (08:46)
[2018-11-24] MEDS: DOCUSATE SODIUM 100 MG CAPSULE PO SCH ×2 (08:46→21:10)
[2018-11-24] MEDS: levETIRAcetam 250 MG TABLET PO SCH ×2 (08:46→21:10)
[2018-11-24] MEDS: VENLAFAXINE 100 MG TABLET PO SCH ×2 (08:50→21:10)
[2018-11-24] MEDS ORDERED: WARFARIN 2 MG TABLET PO ONE (09:00)
[2018-11-24] MEDS ORDERED: SKIN HEALING OINT (AQUAPHOR) 50 GM TUBE TOP PRN (10:25)
[2018-11-24] MEDS ORDERED: WARFARIN 10 MG TABLET PO SCH (18:00)
[2018-11-25] MEDS: SODIUM CHLOR 0.9% KCL 20 MEQ 20 MEQ/1,000 ML BAG IV SCH (02:15)
[2018-11-25 04:43] LABS: Basophils % 0.6 % (0.0-0.8); Eosinophils # 0.4 10*3/uL (0.0-0.87); Eosinophils % 8.6 % (0.00-10.9); Hematocrit 30.8 VOL% (35.7-47.0); Hemoglobin 9.3 GM/DL (12.0-16.0); Immature Granulocytes % 0.2 %; Immature Granulocytes Absolute 0.01 #; Lymphocytes # 1.4 10*3/uL (1.4-4.0); Lymphocytes % 30.2 % (21.3-54.2); Mean Corpuscular HGB Conc 30.2 GM/DL (32-36); Mean Corpuscular Volume 100.7 FL (87-102); Mean Platelet Volume 9.9 FL (9.6-12.0); Monocytes % 11.2 % (1.7-12.7); Neutrophils % 49.2 % (38.7-73.9); Platelet Count 150 T/CUMM (130-400); Red Blood Count 3.06 MC/CUMM (3.8-5.5); Red Cell Distribution Width 15.8 % (9.3-17.3); White Blood Count 4.6 T/CUMM (4-12)
[2018-11-25 05:04] LABS: INR 2.2; PT Patient Result 23.9 SECS
[2018-11-25 05:08] LABS: Alanine Aminotransferase 13 U/L (13-56); Albumin 2.1 G/DL (3.4-5.0); Alkaline Phosphatase 170 U/L (45-117); Aspartate Amino Transferase 23 U/L (0-37); Bilirubin,Total < 0.39 MG/DL (0.2-1.0); Blood Urea Nitrogen 14 MG/DL (7-18); Calcium 7.9 MG/DL (8.5-10.1); Glucose 82 MG/DL (74-106); Osmolality,Calculated 282.1 MOS/KG (273-304); Total Protein 6.3 G/DL (6.4-8.3)
[2018-11-25] MEDS: VENLAFAXINE 100 MG TABLET PO SCH ×2 (09:02→20:21)
[2018-11-25] MEDS: PANTOPRAZOLE 40 MG TABLET PO SCH (09:02)
[2018-11-25] MEDS: PHENYTOIN ER 100 MG CAPSULE PO SCH ×3 (09:02→20:21)
[2018-11-25] MEDS: DOCUSATE SODIUM 100 MG CAPSULE PO SCH ×2 (09:02→20:21)
[2018-11-25] MEDS: TOPIRAMATE 200 MG TABLET PO SCH (09:02)
[2018-11-25] MEDS: levETIRAcetam 250 MG TABLET PO SCH ×2 (09:02→20:22)
[2018-11-25] MEDS: METOPROLOL TARTRATE 50 MG TABLET PO SCH (09:03)
[2018-11-25] MEDS: WARFARIN 7.5 MG TABLET PO SCH (17:39)
[2018-11-26 05:52] LABS: Basophils % 0.4 % (0.0-0.8); Eosinophils # 0.3 10*3/uL (0.0-0.87); Hematocrit 31.5 VOL% (35.7-47.0); Hemoglobin 9.6 GM/DL (12.0-16.0); Immature Granulocytes % 0.2 %; Immature Granulocytes Absolute 0.01 #; Lymphocytes # 1.3 10*3/uL (1.4-4.0); Lymphocytes % 27.8 % (21.3-54.2); Mean Corpuscular HGB Conc 30.5 GM/DL (32-36); Mean Corpuscular Volume 99.4 FL (87-102); Mean Platelet Volume 9.5 FL (9.6-12.0); Monocytes % 8.9 % (1.7-12.7); Neutrophils % 55.7 % (38.7-73.9); Platelet Count 168 T/CUMM (130-400); Red Blood Count 3.17 MC/CUMM (3.8-5.5); Red Cell Distribution Width 15.8 % (9.3-17.3); White Blood Count 4.7 T/CUMM (4-12)
[2018-11-26 05:57] LABS: INR 2.3
[2018-11-26 06:00] LABS: PT Patient Result 24.4 SECS
[2018-11-26 06:17] LABS: Albumin 2.2 G/DL (3.4-5.0); Bilirubin,Total 0.4 MG/DL (0.2-1.0); Calcium 7.7 MG/DL (8.5-10.1); Osmolality,Calculated 283.1 MOS/KG (273-304); Total Protein 6.4 G/DL (6.4-8.3)
[2018-11-26] MEDS: levETIRAcetam 250 MG TABLET PO SCH ×2 (09:10→21:39)
[2018-11-26] MEDS: DOCUSATE SODIUM 100 MG CAPSULE PO SCH ×2 (09:10→21:38)
[2018-11-26] MEDS: METOPROLOL TARTRATE 50 MG TABLET PO SCH (09:10)
[2018-11-26] MEDS: TOPIRAMATE 200 MG TABLET PO SCH (09:11)
[2018-11-26] MEDS: PHENYTOIN ER 100 MG CAPSULE PO SCH ×3 (09:11→21:39)
[2018-11-26] MEDS: VENLAFAXINE 100 MG TABLET PO SCH ×2 (09:11→21:39)
[2018-11-26] MEDS: PANTOPRAZOLE 40 MG TABLET PO SCH (09:11)
[2018-11-26] MEDS ORDERED: PHENYTOIN ER 100 MG CAPSULE PO ONE (10:01)
[2018-11-26] MEDS ORDERED: ALBUTEROL/IPRATROPIUM 3 ML NEB RESP TX SCH (11:00)
[2018-11-26] MEDS: WARFARIN 7.5 MG TABLET PO SCH (18:00)
[2018-11-27 05:47] LABS: Basophils % 0.7 % (0.0-0.8); Eosinophils # 0.3 10*3/uL (0.0-0.87); Eosinophils % 6.7 % (0.00-10.9); Hematocrit 33.4 VOL% (35.7-47.0); Hemoglobin 10.2 GM/DL (12.0-16.0); Immature Granulocytes % 0.2 %; Immature Granulocytes Absolute 0.01 #; Lymphocytes # 1.4 10*3/uL (1.4-4.0); Mean Corpuscular HGB Conc 30.5 GM/DL (32-36); Mean Corpuscular Volume 100.6 FL (87-102); Mean Platelet Volume 9.1 FL (9.6-12.0); Monocytes % 9.9 % (1.7-12.7); Neutrophils % 51.5 % (38.7-73.9); Platelet Count 199 T/CUMM (130-400); Red Blood Count 3.32 MC/CUMM (3.8-5.5); Red Cell Distribution Width 15.8 % (9.3-17.3); White Blood Count 4.4 T/CUMM (4-12)
[2018-11-27 05:56] LABS: INR 1.8; PT Patient Result 19.9 SECS
[2018-11-27] MEDS: DOCUSATE SODIUM 100 MG CAPSULE PO SCH ×2 (09:01→20:26)
[2018-11-27] MEDS: levETIRAcetam 250 MG TABLET PO SCH ×2 (09:02→20:27)
[2018-11-27] MEDS: VENLAFAXINE 100 MG TABLET PO SCH ×2 (09:02→20:27)
[2018-11-27] MEDS: PANTOPRAZOLE 40 MG TABLET PO SCH (09:02)
[2018-11-27] MEDS: TOPIRAMATE 200 MG TABLET PO SCH (09:03)
[2018-11-27] MEDS: METOPROLOL TARTRATE 50 MG TABLET PO SCH (09:03)
[2018-11-27] MEDS: PHENYTOIN ER 100 MG CAPSULE PO SCH ×3 (09:03→20:28)
[2018-11-27] MEDS ORDERED: PHENYTOIN ER 100 MG CAPSULE PO ONE (12:17)
[2018-11-27] MEDS: WARFARIN 7.5 MG TABLET PO SCH (17:45)
[2018-11-28 05:22] LABS: INR 1.7; PT Patient Result 18.4 SECS
[2018-11-28] MEDS ORDERED: PHENYTOIN ER 100 MG CAPSULE PO ONE (09:00)
[2018-11-28] MEDS: PANTOPRAZOLE 40 MG TABLET PO SCH (09:32)
[2018-11-28] MEDS: levETIRAcetam 250 MG TABLET PO SCH (09:32)
[2018-11-28] MEDS: METOPROLOL TARTRATE 50 MG TABLET PO SCH (09:32)
[2018-11-28] MEDS: DOCUSATE SODIUM 100 MG CAPSULE PO SCH ×2 (09:32→09:35)
[2018-11-28] MEDS: VENLAFAXINE 100 MG TABLET PO SCH (09:33)
[2018-11-28] MEDS: TOPIRAMATE 200 MG TABLET PO SCH (09:33)
[2018-11-28] MEDS: PHENYTOIN ER 100 MG CAPSULE PO SCH (09:33)
[2018-11-28 11:48] VITALS: BP 97/59
== END 2018-11-28 13:41 | disposition home or self-care (01) ==
LOC: EDBD → EDUNIT# → N.ED 11:29 → N.EDINP 11:29 → N.2E 15:53
PROVIDERS: ADMIT Family Medicine; ATTEND Family Medicine

== ENCOUNTER 2019-08-27 21:21 | Inpatient (IN) ==
[2019-08-27] MEDS ORDERED: SODIUM CHLORIDE 0.9% 1,000 ML IV STA ×2 (21:48→23:18)
[2019-08-27] MEDS ORDERED: ALBUTEROL/IPRATROPIUM 3 ML NEB RESP TX STA (21:48)
[2019-08-27] MEDS ORDERED: ONDANSETRON 4 MG/2 ML VIAL IV STA (21:49)
[2019-08-27] MEDS ORDERED: HYDROmorphone 2 MG/1 ML VIAL IV STA (21:49)
[2019-08-27 22:52] LABS: Basophils # 0.1 10*3/uL (0.0-0.2); Basophils % 0.3 % (0.0-0.8); Eosinophils % 0.1 % (0.00-10.9); Hematocrit 36.6 VOL% (35.7-47.0); Hemoglobin 11.8 GM/DL (12.0-16.0); Immature Granulocytes Absolute 0.16 #; Lymphocytes # 1.8 10*3/uL (1.4-4.0); Lymphocytes % 11.8 % (21.3-54.2); Mean Corpuscular HGB Conc 32.2 GM/DL (32-36); Mean Corpuscular Volume 92.7 FL (87-102); Mean Platelet Volume 8.6 FL (9.6-12.0); NRBC # 0.02 10*3/uL; Neutrophils % 77.8 % (38.7-73.9); Platelet Count 430 T/CUMM (130-400); Red Blood Count 3.95 MC/CUMM (3.8-5.5); Red Cell Distribution Width 16.3 % (9.3-17.3); White Blood Count 15.3 T/CUMM (4-12)
[2019-08-27 23:00] LABS: Alanine Aminotransferase 22 U/L (13-56); Albumin 2.4 G/DL (3.4-5.0); Alkaline Phosphatase 234 U/L (45-117); Aspartate Amino Transferase 26 U/L (0-37); Blood Urea Nitrogen 86 MG/DL (7-18); Calcium 8.4 MG/DL (8.5-10.1); Estimated Glom Filtration Rate 22 ML/MIN; Glucose 94 MG/DL (74-106); Osmolality,Calculated 285.8 MOS/KG (273-304); Total Protein 9.5 G/DL (6.4-8.3)
[2019-08-27] MEDS ORDERED: CLINDAMYCIN INJ 900 MG in PREMIX 1 EACH IV STA (23:14)
[2019-08-27] MEDS ORDERED: ONDANSETRON 4 MG/2 ML VIAL IV PRN (23:20)
[2019-08-28] MEDS: ENOXAPARIN 30 MG/0.3 ML SYRINGE SUBCUT SCH ×2 (00:41→22:25)
[2019-08-28] MEDS: PANTOPRAZOLE 40 MG VIAL IV SCH ×2 (00:41→09:01)
[2019-08-28] MEDS: DEXTROSE 5% NACL 0.45% 1,000 ML IV SCH ×5 (00:44→17:21)
[2019-08-28] MEDS ORDERED: INFLUENZA VIRUS VACCINE 0.5 ML SYRINGE IM ONE (00:53)
[2019-08-28] MEDS ORDERED: VANCOMYCIN INJ 1,000 MG in SODIUM CHLORIDE 0.9% 250 ML IV ONE (01:00)
[2019-08-28] MEDS: ALBUTEROL 2.5 MG/3 ML NEB RESP TX SCH ×4 (04:50→19:37)
[2019-08-28] MEDS: CLINDAMYCIN INJ 900 MG in PREMIX 1 EACH IV SCH ×3 (05:34→22:24)
[2019-08-28] MEDS ORDERED: FUROSEMIDE 40 MG TABLET PO PRN (07:58)
[2019-08-28] MEDS: METOPROLOL TARTRATE 50 MG TABLET PO SCH (09:01)
[2019-08-28] MEDS: PHENYTOIN ER 100 MG CAPSULE PO SCH ×3 (09:01→22:25)
[2019-08-28] MEDS: CLOPIDOGREL 75 MG TABLET PO SCH (09:01)
[2019-08-28] MEDS: TOPIRAMATE 200 MG TABLET PO SCH (09:01)
[2019-08-28] MEDS: VENLAFAXINE 100 MG TABLET PO SCH ×2 (09:01→22:25)
[2019-08-28] MEDS ORDERED: CHLORHEXIDINE 4% SOLN 118 ML BOTTLE TOP ONE (13:17)
[2019-08-28] MEDS: SILVER SULFADIAZINE 1% CREAM 25 GM TUBE TOP SCH (17:23)
[2019-08-28] MEDS: KETOCONAZOLE 2% CREAM 30 GM TUBE TOP SCH (17:23)
[2019-08-28] MEDS: levETIRAcetam 500 MG TABLET PO SCH (22:24)
[2019-08-29] MEDS: ALBUTEROL 2.5 MG/3 ML NEB RESP TX SCH ×4 (00:39→18:54)
[2019-08-29] MEDS: DEXTROSE 5% NACL 0.45% 1,000 ML IV SCH (01:44)
[2019-08-29] MEDS: ENOXAPARIN 30 MG/0.3 ML SYRINGE SUBCUT SCH ×2 (01:46→22:36)
[2019-08-29 05:33] LABS: Basophils % 0.2 % (0.0-0.8); Eosinophils # 0.1 10*3/uL (0.0-0.87); Eosinophils % 0.8 % (0.00-10.9); Hematocrit 28.8 VOL% (35.7-47.0); Hemoglobin 9.2 GM/DL (12.0-16.0); Immature Granulocytes % 0.8 %; Lymphocytes # 1.4 10*3/uL (1.4-4.0); Lymphocytes % 11.1 % (21.3-54.2); Mean Corpuscular HGB Conc 31.9 GM/DL (32-36); Mean Corpuscular Volume 93.5 FL (87-102); Mean Platelet Volume 8.8 FL (9.6-12.0); Monocytes % 7.5 % (1.7-12.7); Neutrophils % 79.6 % (38.7-73.9); Platelet Count 292 T/CUMM (130-400); Red Blood Count 3.08 MC/CUMM (3.8-5.5); Red Cell Distribution Width 16.8 % (9.3-17.3); White Blood Count 12.8 T/CUMM (4-12)
[2019-08-29] MEDS: CLINDAMYCIN INJ 900 MG in PREMIX 1 EACH IV SCH ×3 (05:53→22:55)
[2019-08-29 06:04] LABS: Thyroid Stimulating Hormone 0.344 uIU/ml (0.358-3.74)
[2019-08-29] MEDS ORDERED: MAGNESIUM SULF RIDER 2 GM in PREMIX 1 EACH IV ONE (08:30)
[2019-08-29] MEDS: CLOPIDOGREL 75 MG TABLET PO SCH (08:39)
[2019-08-29] MEDS: PHENYTOIN ER 100 MG CAPSULE PO SCH ×3 (08:39→22:36)
[2019-08-29] MEDS: VENLAFAXINE 100 MG TABLET PO SCH ×2 (08:39→22:36)
[2019-08-29] MEDS: KETOCONAZOLE 2% CREAM 30 GM TUBE TOP SCH (08:40)
[2019-08-29] MEDS: SILVER SULFADIAZINE 1% CREAM 25 GM TUBE TOP SCH (08:40)
[2019-08-29 08:41] LABS: Albumin 1.6 G/DL (3.4-5.0); Bilirubin,Total 0.4 MG/DL (0.2-1.0); Calcium 7.6 MG/DL (8.5-10.1); Osmolality,Calculated 281.4 MOS/KG (273-304); Total Protein 6.9 G/DL (6.4-8.3)
[2019-08-29] MEDS: PANTOPRAZOLE 40 MG VIAL IV SCH (08:41)
[2019-08-29] MEDS: METOPROLOL TARTRATE 50 MG TABLET PO SCH (08:41)
[2019-08-29] MEDS: TOPIRAMATE 200 MG TABLET PO SCH (08:43)
[2019-08-29] MEDS: NACL 0.45% IV SCH ×2 (10:11→17:50)
[2019-08-29] MEDS: MAGNESIUM SULF IV SCH ×2 (10:11→17:50)
[2019-08-29] MEDS: DEXTROSE 5% IV SCH ×2 (10:11→17:50)
[2019-08-29] MEDS: ACETAMINOPHEN 325 MG TABLET PO PRN (22:36)
[2019-08-29] MEDS: levETIRAcetam 500 MG TABLET PO SCH (22:36)
[2019-08-30] MEDS: ALBUTEROL 2.5 MG/3 ML NEB RESP TX SCH ×4 (01:24→20:19)
[2019-08-30 05:20] LABS: Basophils % 0.4 % (0.0-0.8); Eosinophils # 0.1 10*3/uL (0.0-0.87); Eosinophils % 1.3 % (0.00-10.9); Hematocrit 26.2 VOL% (35.7-47.0); Hemoglobin 8.4 GM/DL (12.0-16.0); Immature Granulocytes % 0.7 %; Immature Granulocytes Absolute 0.07 #; Lymphocytes # 1.6 10*3/uL (1.4-4.0); Mean Corpuscular HGB Conc 32.1 GM/DL (32-36); Mean Corpuscular Volume 93.9 FL (87-102); Mean Platelet Volume 8.6 FL (9.6-12.0); Monocytes % 9.8 % (1.7-12.7); Neutrophils % 71.8 % (38.7-73.9); Platelet Count 273 T/CUMM (130-400); Red Blood Count 2.79 MC/CUMM (3.8-5.5); Red Cell Distribution Width 17.2 % (9.3-17.3); White Blood Count 10.1 T/CUMM (4-12)
[2019-08-30 05:39] LABS: Albumin 1.4 G/DL (3.4-5.0); Bilirubin,Total 1.1 MG/DL (0.2-1.0); Calcium 7.4 MG/DL (8.5-10.1); Osmolality,Calculated 282.8 MOS/KG (273-304); Risk Ratio 1.56; Total Protein 6.5 G/DL (6.4-8.3); VLDL CHOLESTEROL 7.8 MG/DL
[2019-08-30] MEDS: CLINDAMYCIN INJ 900 MG in PREMIX 1 EACH IV SCH ×3 (05:47→23:44)
[2019-08-30] MEDS: DEXTROSE 5% IV SCH ×2 (06:14→18:56)
[2019-08-30] MEDS: MAGNESIUM SULF IV SCH ×2 (06:14→18:56)
[2019-08-30] MEDS: NACL 0.45% IV SCH ×2 (06:14→18:56)
[2019-08-30] MEDS: PHENYTOIN ER 100 MG CAPSULE PO SCH ×3 (08:42→20:54)
[2019-08-30] MEDS: METOPROLOL TARTRATE 50 MG TABLET PO SCH (08:42)
[2019-08-30] MEDS: VENLAFAXINE 100 MG TABLET PO SCH ×2 (08:42→20:54)
[2019-08-30] MEDS: TOPIRAMATE 200 MG TABLET PO SCH (08:43)
[2019-08-30] MEDS: PANTOPRAZOLE 40 MG VIAL IV SCH (08:43)
[2019-08-30] MEDS: CLOPIDOGREL 75 MG TABLET PO SCH (08:43)
[2019-08-30] MEDS: SILVER SULFADIAZINE 1% CREAM 25 GM TUBE TOP SCH (08:43)
[2019-08-30] MEDS: KETOCONAZOLE 2% CREAM 30 GM TUBE TOP SCH (08:44)
[2019-08-30] MEDS: POTASSIUM CHLORIDE RIDER 10 MEQ in PREMIX 1 EACH IV SCH ×2 (08:48→10:17)
[2019-08-30] MEDS: DEXTROSE 5% NACL 0.45% 1,000 ML IV SCH (15:53)
[2019-08-30 19:21] LABS: Apearance,Urine CLOUDY (Clear); Bilirubin,Urine Negative (Negative); Blood, Urine Small mg/dL (Negative); Glucose,Urine (UA) Negative (Negative); Ketones,Urine Negative (Negative); Mucus,Urine Occasional /LPF (Occasional); Nitrite,Urine Negative (Negative); Protein,Urine Negative; RBC,Urine 7 /HPF (0-4); Squamous Epithelial Cell,Urine Occasional /HPF (0-10); Urine Color Yellow (Yellow); Urine Specific Gravity 1.019 (1.001-1.035); Urine Urobilinogen < 2.0 EU/DL (0.2-1.0)
[2019-08-30] MEDS: levETIRAcetam 500 MG TABLET PO SCH (20:54)
[2019-08-30] MEDS: ENOXAPARIN 30 MG/0.3 ML SYRINGE SUBCUT SCH (23:43)
[2019-08-31] MEDS: ALBUTEROL 2.5 MG/3 ML NEB RESP TX SCH ×4 (00:20→19:12)
[2019-08-31 05:26] LABS: Basophils % 0.3 % (0.0-0.8); Eosinophils # 0.2 10*3/uL (0.0-0.87); Eosinophils % 2.4 % (0.00-10.9); Hematocrit 26.9 VOL% (35.7-47.0); Hemoglobin 8.6 GM/DL (12.0-16.0); Immature Granulocytes % 1.1 %; Lymphocytes # 1.5 10*3/uL (1.4-4.0); Lymphocytes % 17.5 % (21.3-54.2); Mean Corpuscular Volume 94.7 FL (87-102); Mean Platelet Volume 8.5 FL (9.6-12.0); Monocytes % 10.4 % (1.7-12.7); Neutrophils % 68.3 % (38.7-73.9); Platelet Count 285 T/CUMM (130-400); Red Blood Count 2.84 MC/CUMM (3.8-5.5); Red Cell Distribution Width 17.2 % (9.3-17.3); White Blood Count 8.8 T/CUMM (4-12)
[2019-08-31] MEDS: CLINDAMYCIN INJ 900 MG in PREMIX 1 EACH IV SCH (05:55)
[2019-08-31 06:14] LABS: Albumin 1.4 G/DL (3.4-5.0); Bilirubin,Total 0.7 MG/DL (0.2-1.0); Calcium 7.6 MG/DL (8.5-10.1); Osmolality,Calculated 281.5 MOS/KG (273-304); Total Protein 6.5 G/DL (6.4-8.3)
[2019-08-31] MEDS: PHENYTOIN ER 100 MG CAPSULE PO SCH ×3 (09:34→20:52)
[2019-08-31] MEDS: VENLAFAXINE 100 MG TABLET PO SCH ×2 (09:34→20:52)
[2019-08-31] MEDS: PANTOPRAZOLE 40 MG VIAL IV SCH (09:34)
[2019-08-31] MEDS: LEVOFLOXACIN INJ 750 MG in PREMIX 1 EACH IV SCH (09:35)
[2019-08-31] MEDS: METOPROLOL TARTRATE 50 MG TABLET PO SCH (09:35)
[2019-08-31] MEDS: TOPIRAMATE 200 MG TABLET PO SCH (09:35)
[2019-08-31] MEDS: DEXTROSE 5% IV SCH ×2 (09:35→23:01)
[2019-08-31] MEDS: NACL 0.45% IV SCH ×2 (09:35→23:01)
[2019-08-31] MEDS: KETOCONAZOLE 2% CREAM 30 GM TUBE TOP SCH (09:35)
[2019-08-31] MEDS: MAGNESIUM SULF IV SCH ×2 (09:35→23:01)
[2019-08-31] MEDS: SILVER SULFADIAZINE 1% CREAM 25 GM TUBE TOP SCH (09:35)
[2019-08-31] MEDS: CLOPIDOGREL 75 MG TABLET PO SCH (09:35)
[2019-08-31] MEDS: levETIRAcetam 500 MG TABLET PO SCH (20:52)
[2019-08-31] MEDS: ENOXAPARIN 30 MG/0.3 ML SYRINGE SUBCUT SCH (22:59)
[2019-09-01] MEDS: ALBUTEROL 2.5 MG/3 ML NEB RESP TX SCH ×4 (00:25→19:26)
[2019-09-01 05:40] LABS: Basophils % 0.4 % (0.0-0.8); Eosinophils # 0.2 10*3/uL (0.0-0.87); Eosinophils % 2.5 % (0.00-10.9); Hematocrit 26.4 VOL% (35.7-47.0); Hemoglobin 8.3 GM/DL (12.0-16.0); Immature Granulocytes % 0.9 %; Immature Granulocytes Absolute 0.07 #; Lymphocytes # 1.3 10*3/uL (1.4-4.0); Lymphocytes % 16.6 % (21.3-54.2); Mean Corpuscular HGB Conc 31.4 GM/DL (32-36); Mean Corpuscular Volume 94.3 FL (87-102); Mean Platelet Volume 8.6 FL (9.6-12.0); Monocytes % 11.2 % (1.7-12.7); Neutrophils % 68.4 % (38.7-73.9); Platelet Count 318 T/CUMM (130-400); White Blood Count 7.5 T/CUMM (4-12)
[2019-09-01 06:06] LABS: Albumin 1.4 G/DL (3.4-5.0); Bilirubin,Total 0.7 MG/DL (0.2-1.0); Calcium 7.4 MG/DL (8.5-10.1); Total Protein 6.5 G/DL (6.4-8.3)
[2019-09-01] MEDS: LEVOFLOXACIN INJ 750 MG in PREMIX 1 EACH IV SCH (08:48)
[2019-09-01] MEDS: MAGNESIUM SULF IV SCH ×2 (08:51→13:15)
[2019-09-01] MEDS: DEXTROSE 5% IV SCH ×2 (08:51→13:15)
[2019-09-01] MEDS: NACL 0.45% IV SCH ×2 (08:51→13:15)
[2019-09-01] MEDS: VENLAFAXINE 100 MG TABLET PO SCH ×2 (10:00→20:51)
[2019-09-01] MEDS: METOPROLOL TARTRATE 50 MG TABLET PO SCH (10:00)
[2019-09-01] MEDS: CLOPIDOGREL 75 MG TABLET PO SCH (10:00)
[2019-09-01] MEDS: TOPIRAMATE 200 MG TABLET PO SCH (10:00)
[2019-09-01] MEDS: PHENYTOIN ER 100 MG CAPSULE PO SCH ×3 (10:00→20:50)
[2019-09-01] MEDS: SILVER SULFADIAZINE 1% CREAM 25 GM TUBE TOP SCH (10:01)
[2019-09-01] MEDS: KETOCONAZOLE 2% CREAM 30 GM TUBE TOP SCH (10:01)
[2019-09-01] MEDS: PANTOPRAZOLE 40 MG VIAL IV SCH (11:00)
[2019-09-01] MEDS ORDERED: SKIN HEALING OINT (AQUAPHOR) 50 GM TUBE TOP PRN (15:23)
[2019-09-01] MEDS: levETIRAcetam 500 MG TABLET PO SCH (20:50)
[2019-09-01] MEDS ORDERED: MAGNESIUM SULF RIDER 2 GM in PREMIX 1 EACH IV ONE (21:59)
[2019-09-01] MEDS ORDERED: POTASSIUM CHLORIDE 20 MEQ TABLET PO ONE (21:59)
[2019-09-01] MEDS ORDERED: VANCOMYCIN INJ 2,000 MG in SODIUM CHLORIDE 0.9% 500 ML IV ONE (23:00)
[2019-09-01] MEDS: ENOXAPARIN 30 MG/0.3 ML SYRINGE SUBCUT SCH (23:39)
[2019-09-02] MEDS: ALBUTEROL 2.5 MG/3 ML NEB RESP TX SCH ×4 (00:29→19:27)
[2019-09-02 06:02] LABS: Basophils # 0.1 10*3/uL (0.0-0.2); Basophils % 0.7 % (0.0-0.8); Eosinophils # 0.2 10*3/uL (0.0-0.87); Hematocrit 27.8 VOL% (35.7-47.0); Hemoglobin 8.7 GM/DL (12.0-16.0); Immature Granulocytes % 0.7 %; Immature Granulocytes Absolute 0.05 #; Lymphocytes # 1.5 10*3/uL (1.4-4.0); Lymphocytes % 22.6 % (21.3-54.2); Mean Corpuscular HGB Conc 31.3 GM/DL (32-36); Mean Corpuscular Volume 96.2 FL (87-102); Mean Platelet Volume 8.3 FL (9.6-12.0); Monocytes % 12.9 % (1.7-12.7); Neutrophils % 60.1 % (38.7-73.9); Platelet Count 321 T/CUMM (130-400); Red Blood Count 2.89 MC/CUMM (3.8-5.5); Red Cell Distribution Width 17.1 % (9.3-17.3); White Blood Count 6.7 T/CUMM (4-12)
[2019-09-02 06:24] LABS: Alanine Aminotransferase 12 U/L (13-56); Albumin 1.5 G/DL (3.4-5.0); Alkaline Phosphatase 148 U/L (45-117); Aspartate Amino Transferase 15 U/L (0-37); Bilirubin,Total < 0.39 MG/DL (0.2-1.0); Blood Urea Nitrogen 17 MG/DL (7-18); Calcium 7.6 MG/DL (8.5-10.1); Estimated Glom Filtration Rate 125 ML/MIN; Glucose 87 MG/DL (74-106); Osmolality,Calculated 275.7 MOS/KG (273-304); Total Protein 6.5 G/DL (6.4-8.3)
[2019-09-02] MEDS: VENLAFAXINE 100 MG TABLET PO SCH ×2 (09:12→22:01)
[2019-09-02] MEDS: PANTOPRAZOLE 40 MG VIAL IV SCH (09:12)
[2019-09-02] MEDS: CLOPIDOGREL 75 MG TABLET PO SCH (09:12)
[2019-09-02] MEDS: TOPIRAMATE 200 MG TABLET PO SCH (09:12)
[2019-09-02] MEDS: PHENYTOIN ER 100 MG CAPSULE PO SCH ×3 (09:12→22:00)
[2019-09-02] MEDS: POTASSIUM CHLORIDE 20 MEQ TABLET PO SCH ×2 (09:12→22:01)
[2019-09-02] MEDS: LEVOFLOXACIN INJ 750 MG in PREMIX 1 EACH IV SCH (09:13)
[2019-09-02] MEDS: METOPROLOL TARTRATE 50 MG TABLET PO SCH (09:13)
[2019-09-02] MEDS: SILVER SULFADIAZINE 1% CREAM 25 GM TUBE TOP SCH (09:19)
[2019-09-02] MEDS: KETOCONAZOLE 2% CREAM 30 GM TUBE TOP SCH (09:19)
[2019-09-02] MEDS: VANCOMYCIN INJ 1,500 MG in SODIUM CHLORIDE 0.9% 500 ML IV SCH ×2 (11:06→23:47)
[2019-09-02] MEDS: NACL 0.45% IV SCH (11:06)
[2019-09-02] MEDS: MAGNESIUM SULF IV SCH (11:06)
[2019-09-02] MEDS: DEXTROSE 5% IV SCH (11:06)
[2019-09-02] MEDS: levETIRAcetam 500 MG TABLET PO SCH (22:01)
[2019-09-02] MEDS: ENOXAPARIN 40 MG/0.4 ML SYRINGE SUBCUT SCH (23:47)
[2019-09-03] MEDS: ALBUTEROL 2.5 MG/3 ML NEB RESP TX SCH ×4 (00:34→19:27)
[2019-09-03] MEDS: MAGNESIUM SULF IV SCH ×3 (02:22→19:25)
[2019-09-03] MEDS: NACL 0.45% IV SCH ×3 (02:22→19:25)
[2019-09-03] MEDS: DEXTROSE 5% IV SCH ×3 (02:22→19:25)
[2019-09-03 06:03] LABS: Basophils % 0.6 % (0.0-0.8); Eosinophils # 0.2 10*3/uL (0.0-0.87); Eosinophils % 3.8 % (0.00-10.9); Hematocrit 26.3 VOL% (35.7-47.0); Hemoglobin 8.3 GM/DL (12.0-16.0); Immature Granulocytes % 1.1 %; Immature Granulocytes Absolute 0.07 #; Lymphocytes # 1.5 10*3/uL (1.4-4.0); Lymphocytes % 23.3 % (21.3-54.2); Mean Corpuscular HGB Conc 31.6 GM/DL (32-36); Mean Platelet Volume 8.6 FL (9.6-12.0); Monocytes % 14.5 % (1.7-12.7); Neutrophils % 56.7 % (38.7-73.9); Platelet Count 324 T/CUMM (130-400); Red Blood Count 2.71 MC/CUMM (3.8-5.5); Red Cell Distribution Width 17.3 % (9.3-17.3); White Blood Count 6.4 T/CUMM (4-12)
[2019-09-03 06:26] LABS: Albumin 1.5 G/DL (3.4-5.0); Bilirubin,Total 0.5 MG/DL (0.2-1.0); Calcium 7.5 MG/DL (8.5-10.1); Osmolality,Calculated 276.7 MOS/KG (273-304); Total Protein 6.4 G/DL (6.4-8.3)
[2019-09-03] MEDS: TOPIRAMATE 200 MG TABLET PO SCH (10:36)
[2019-09-03] MEDS: METOPROLOL TARTRATE 50 MG TABLET PO SCH (10:37)
[2019-09-03] MEDS: PANTOPRAZOLE 40 MG VIAL IV SCH (10:37)
[2019-09-03] MEDS: CLOPIDOGREL 75 MG TABLET PO SCH (10:37)
[2019-09-03] MEDS: POTASSIUM CHLORIDE 20 MEQ TABLET PO SCH ×2 (10:37→21:11)
[2019-09-03] MEDS: VENLAFAXINE 100 MG TABLET PO SCH ×2 (10:37→21:11)
[2019-09-03] MEDS: PHENYTOIN ER 100 MG CAPSULE PO SCH ×3 (10:37→21:12)
[2019-09-03] MEDS: SILVER SULFADIAZINE 1% CREAM 25 GM TUBE TOP SCH (10:38)
[2019-09-03] MEDS: KETOCONAZOLE 2% CREAM 30 GM TUBE TOP SCH (10:39)
[2019-09-03] MEDS: LEVOFLOXACIN INJ 750 MG in PREMIX 1 EACH IV SCH (10:43)
[2019-09-03] MEDS: MAGNESIUM HYDROXIDE SUSP 30 ML UDCUP PO PRN (13:18)
[2019-09-03] MEDS: VANCOMYCIN INJ 1,500 MG in SODIUM CHLORIDE 0.9% 500 ML IV SCH (21:11)
[2019-09-03] MEDS: levETIRAcetam 500 MG TABLET PO SCH (21:12)
[2019-09-03] MEDS: ENOXAPARIN 40 MG/0.4 ML SYRINGE SUBCUT SCH ×2 (21:12→22:04)
[2019-09-04] MEDS: ALBUTEROL 2.5 MG/3 ML NEB RESP TX SCH ×4 (01:03→19:08)
[2019-09-04] MEDS: TOPIRAMATE 200 MG TABLET PO SCH (09:47)
[2019-09-04] MEDS: VENLAFAXINE 100 MG TABLET PO SCH ×2 (09:47→21:50)
[2019-09-04] MEDS: LEVOFLOXACIN INJ 750 MG in PREMIX 1 EACH IV SCH (09:48)
[2019-09-04] MEDS: CLOPIDOGREL 75 MG TABLET PO SCH (09:48)
[2019-09-04] MEDS: PHENYTOIN ER 100 MG CAPSULE PO SCH ×3 (09:48→21:51)
[2019-09-04] MEDS: DEXTROSE 5% IV SCH (09:49)
[2019-09-04] MEDS: NACL 0.45% IV SCH (09:49)
[2019-09-04] MEDS: PANTOPRAZOLE 40 MG VIAL IV SCH (09:49)
[2019-09-04] MEDS: POTASSIUM CHLORIDE 20 MEQ TABLET PO SCH ×2 (09:49→21:51)
[2019-09-04] MEDS: MAGNESIUM SULF IV SCH (09:49)
[2019-09-04] MEDS: METOPROLOL TARTRATE 50 MG TABLET PO SCH (09:49)
[2019-09-04] MEDS: KETOCONAZOLE 2% CREAM 30 GM TUBE TOP SCH (09:50)
[2019-09-04] MEDS: VANCOMYCIN INJ 1,500 MG in SODIUM CHLORIDE 0.9% 500 ML IV SCH (21:49)
[2019-09-04] MEDS: levETIRAcetam 500 MG TABLET PO SCH (21:51)
[2019-09-04] MEDS: ACETAMINOPHEN 325 MG TABLET PO PRN (21:51)
[2019-09-04] MEDS: ENOXAPARIN 40 MG/0.4 ML SYRINGE SUBCUT SCH (22:58)
[2019-09-05] MEDS: ALBUTEROL 2.5 MG/3 ML NEB RESP TX SCH ×4 (01:50→19:02)
[2019-09-05] MEDS: NACL 0.45% IV SCH (06:37)
[2019-09-05] MEDS: DEXTROSE 5% IV SCH (06:37)
[2019-09-05] MEDS: MAGNESIUM SULF IV SCH (06:37)
[2019-09-05 06:41] LABS: Basophils % 0.7 % (0.0-0.8); Eosinophils # 0.2 10*3/uL (0.0-0.87); Eosinophils % 4.2 % (0.00-10.9); Hemoglobin 8.3 GM/DL (12.0-16.0); Immature Granulocytes % 0.7 %; Immature Granulocytes Absolute 0.04 #; Lymphocytes # 1.4 10*3/uL (1.4-4.0); Lymphocytes % 25.6 % (21.3-54.2); Mean Corpuscular HGB Conc 30.7 GM/DL (32-36); Mean Corpuscular Volume 99.3 FL (87-102); Mean Platelet Volume 8.2 FL (9.6-12.0); Monocytes % 11.8 % (1.7-12.7); Platelet Count 294 T/CUMM (130-400); Red Blood Count 2.72 MC/CUMM (3.8-5.5); Red Cell Distribution Width 17.8 % (9.3-17.3); White Blood Count 5.4 T/CUMM (4-12)
[2019-09-05 06:58] LABS: Albumin 1.5 G/DL (3.4-5.0); Bilirubin,Total 0.5 MG/DL (0.2-1.0); Calcium 7.6 MG/DL (8.5-10.1); Osmolality,Calculated 280.4 MOS/KG (273-304); Total Protein 6.4 G/DL (6.4-8.3)
[2019-09-05] MEDS: POTASSIUM CHLORIDE 20 MEQ TABLET PO SCH ×2 (09:07→21:22)
[2019-09-05] MEDS: LEVOFLOXACIN INJ 750 MG in PREMIX 1 EACH IV SCH (09:07)
[2019-09-05] MEDS: VENLAFAXINE 100 MG TABLET PO SCH ×2 (09:07→21:21)
[2019-09-05] MEDS: PHENYTOIN ER 100 MG CAPSULE PO SCH ×3 (09:07→21:21)
[2019-09-05] MEDS: TOPIRAMATE 200 MG TABLET PO SCH (09:07)
[2019-09-05] MEDS: CLOPIDOGREL 75 MG TABLET PO SCH (09:07)
[2019-09-05] MEDS: METOPROLOL TARTRATE 50 MG TABLET PO SCH (09:08)
[2019-09-05] MEDS: PANTOPRAZOLE 40 MG VIAL IV SCH (09:08)
[2019-09-05] MEDS: KETOCONAZOLE 2% CREAM 30 GM TUBE TOP SCH (13:47)
[2019-09-05] MEDS ORDERED: TUBERCULIN SKIN TEST 0.1 ML SYRINGE INTRADERM ONE (14:00)
[2019-09-05] MEDS: VANCOMYCIN INJ 1,500 MG in SODIUM CHLORIDE 0.9% 500 ML IV SCH (21:18)
[2019-09-05] MEDS: levETIRAcetam 500 MG TABLET PO SCH (21:20)
[2019-09-06] MEDS: ALBUTEROL 2.5 MG/3 ML NEB RESP TX SCH ×4 (01:20→19:55)
[2019-09-06 06:20] LABS: Basophils % 0.9 % (0.0-0.8); Eosinophils # 0.2 10*3/uL (0.0-0.87); Eosinophils % 3.8 % (0.00-10.9); Hematocrit 28.1 VOL% (35.7-47.0); Hemoglobin 8.5 GM/DL (12.0-16.0); Immature Granulocytes % 0.4 %; Immature Granulocytes Absolute 0.02 #; Lymphocytes # 1.5 10*3/uL (1.4-4.0); Lymphocytes % 32.5 % (21.3-54.2); Mean Corpuscular HGB Conc 30.2 GM/DL (32-36); Mean Corpuscular Volume 99.6 FL (87-102); Mean Platelet Volume 8.2 FL (9.6-12.0); Neutrophils % 50.4 % (38.7-73.9); Platelet Count 295 T/CUMM (130-400); Red Blood Count 2.82 MC/CUMM (3.8-5.5); Red Cell Distribution Width 17.8 % (9.3-17.3); White Blood Count 4.5 T/CUMM (4-12)
[2019-09-06 06:36] LABS: Calcium 7.6 MG/DL (8.5-10.1); Osmolality,Calculated 283.4 MOS/KG (273-304)
[2019-09-06] MEDS: PANTOPRAZOLE 40 MG VIAL IV SCH (08:29)
[2019-09-06] MEDS: TOPIRAMATE 200 MG TABLET PO SCH (08:30)
[2019-09-06] MEDS: MAGNESIUM HYDROXIDE SUSP 30 ML UDCUP PO PRN (08:30)
[2019-09-06] MEDS: VENLAFAXINE 100 MG TABLET PO SCH (08:30)
[2019-09-06] MEDS: PHENYTOIN ER 100 MG CAPSULE PO SCH (08:30)
[2019-09-06] MEDS: POTASSIUM CHLORIDE 20 MEQ TABLET PO SCH (08:31)
[2019-09-06] MEDS: CLOPIDOGREL 75 MG TABLET PO SCH (08:31)
[2019-09-06] MEDS: KETOCONAZOLE 2% CREAM 30 GM TUBE TOP SCH (08:31)
[2019-09-06] MEDS: LEVOFLOXACIN INJ 750 MG in PREMIX 1 EACH IV SCH (09:01)
[2019-09-06] MEDS: ENOXAPARIN 40 MG/0.4 ML SYRINGE SUBCUT SCH (09:02)
[2019-09-06] MEDS: DEXTROSE 5% IV SCH ×2 (09:03→09:04)
[2019-09-06] MEDS: MAGNESIUM SULF IV SCH ×2 (09:03→09:04)
[2019-09-06] MEDS: METOPROLOL TARTRATE 50 MG TABLET PO SCH (09:03)
[2019-09-06] MEDS: NACL 0.45% IV SCH ×2 (09:03→09:04)
[2019-09-06 16:16] VITALS: BP 90/50
[2019-09-07] MEDS ORDERED: LEVOFLOXACIN 500 MG TABLET PO SCH (09:00)
== END 2019-09-06 20:50 | disposition home or self-care (01) | DRG 603 ==
LOC: EDBD → N.ED 21:21 → EDUNIT# 21:21 → N.EDINP 23:20 → N.ICU 08-28 → N.5E 08-28 12:57
PROVIDERS: ADMIT Family Medicine; ATTEND Family Medicine

== ENCOUNTER 2020-04-30 12:25 | Inpatient (IN) ==
[2020-04-30] MEDS ORDERED: VANCOMYCIN INJ 1,750 MG in SODIUM CHLORIDE 0.9% 250 ML IV STA ×2 (14:02→15:14)
[2020-04-30] MEDS ORDERED: ONDANSETRON 4 MG/2 ML VIAL IV PRN (15:26)
[2020-04-30] MEDS: ACETAMINOPHEN 325 MG TABLET PO PRN (15:55)
[2020-04-30 16:40] LABS: Basophils % 0.4 % (0.0-0.8); Eosinophils # 0.3 10*3/uL (0.0-0.87); Eosinophils % 3.2 % (0.00-10.9); Hematocrit 31.2 VOL% (35.7-47.0); Hemoglobin 9.7 GM/DL (12.0-16.0); Immature Granulocytes % 0.7 %; Immature Granulocytes Absolute 0.07 #; Lymphocytes # 1.6 10*3/uL (1.4-4.0); Lymphocytes % 15.8 % (21.3-54.2); Mean Corpuscular HGB Conc 31.1 GM/DL (32-36); Mean Platelet Volume 8.1 FL (9.6-12.0); Monocytes % 6.4 % (1.7-12.7); Neutrophils % 73.5 % (38.7-73.9); Platelet Count 476 T/CUMM (130-400); Red Blood Count 3.12 MC/CUMM (3.8-5.5); Red Cell Distribution Width 15.4 % (9.3-17.3); White Blood Count 10.3 T/CUMM (4-12)
[2020-04-30 17:03] LABS: Alanine Aminotransferase 17 U/L (13-56); Albumin 2.1 G/DL (3.4-5.0); Alkaline Phosphatase 185 U/L (45-117); Aspartate Amino Transferase 18 U/L (0-37); Bilirubin,Total < 0.39 MG/DL (0.2-1.0); Blood Urea Nitrogen 13 MG/DL (7-18); Calcium 8.5 MG/DL (8.5-10.1); Estimated Glom Filtration Rate 106 ML/MIN; Glucose 73 MG/DL (74-106); Osmolality,Calculated 271.8 MOS/KG (273-304)
[2020-04-30] MEDS: DOCUSATE SODIUM 100 MG CAPSULE PO SCH (21:24)
[2020-05-01] MEDS: ACETAMINOPHEN 325 MG TABLET PO PRN (00:54)
[2020-05-01] MEDS ORDERED: FUROSEMIDE 40 MG TABLET PO PRN (07:43)
[2020-05-01] MEDS ORDERED: ZALEPLON 5 MG CAPSULE PO PRN (07:47)
[2020-05-01 08:30] LABS: Basophils # 0.1 10*3/uL (0.0-0.2); Basophils % 0.6 % (0.0-0.8); Eosinophils # 0.3 10*3/uL (0.0-0.87); Eosinophils % 3.8 % (0.00-10.9); Hematocrit 28.2 VOL% (35.7-47.0); Hemoglobin 8.9 GM/DL (12.0-16.0); Immature Granulocytes % 0.4 %; Immature Granulocytes Absolute 0.03 #; Lymphocytes # 1.4 10*3/uL (1.4-4.0); Lymphocytes % 16.3 % (21.3-54.2); Mean Corpuscular HGB Conc 31.6 GM/DL (32-36); Mean Corpuscular Volume 99.3 FL (87-102); Monocytes % 7.5 % (1.7-12.7); Neutrophils % 71.4 % (38.7-73.9); Platelet Count 401 T/CUMM (130-400); Red Blood Count 2.84 MC/CUMM (3.8-5.5); Red Cell Distribution Width 15.2 % (9.3-17.3); White Blood Count 8.4 T/CUMM (4-12)
[2020-05-01] MEDS: TOPIRAMATE 200 MG TABLET PO SCH (09:35)
[2020-05-01] MEDS: VENLAFAXINE 100 MG TABLET PO SCH ×2 (09:35→21:34)
[2020-05-01] MEDS: levETIRAcetam 250 MG TABLET PO SCH (09:35)
[2020-05-01] MEDS: LEVOFLOXACIN INJ 500 MG in PREMIX 1 EACH IV SCH (09:35)
[2020-05-01] MEDS: ENOXAPARIN 40 MG/0.4 ML SYRINGE SUBCUT SCH (09:36)
[2020-05-01] MEDS: PHENYTOIN ER 100 MG CAPSULE PO SCH ×3 (09:38→21:34)
[2020-05-01] MEDS: SODIUM HYPOCHLORITE 0.25% IRRIG 473 ML BOTTLE TOP SCH (09:38)
[2020-05-01] MEDS: PANTOPRAZOLE 40 MG TABLET PO SCH (09:38)
[2020-05-01] MEDS: DOCUSATE SODIUM 100 MG CAPSULE PO SCH ×2 (09:38→21:37)
[2020-05-01] MEDS: CLOPIDOGREL 75 MG TABLET PO SCH (09:38)
[2020-05-01 18:39] LABS: Bilirubin,Urine Negative (Negative); Blood, Urine Small mg/dL (Negative); Glucose,Urine (UA) Negative (Negative); Ketones,Urine Negative (Negative); Mucus,Urine Occasional /LPF (Occasional); Nitrite,Urine Negative (Negative); Protein,Urine Negative; RBC,Urine 1 /HPF (0-4); Urine Appearance CLEAR (Clear); Urine Color Straw (Yellow); Urine Specific Gravity 1.009 (1.001-1.035); Urine Urobilinogen < 2.0 EU/DL (0.2-1.0); WBC,Urine <1 /HPF (0-6)
[2020-05-01] MEDS: levETIRAcetam 500 MG TABLET PO SCH (21:34)
[2020-05-02 06:20] LABS: Basophils % 0.6 % (0.0-0.8); Eosinophils # 0.4 10*3/uL (0.0-0.87); Eosinophils % 4.8 % (0.00-10.9); Hemoglobin 9.6 GM/DL (12.0-16.0); Immature Granulocytes % 0.4 %; Immature Granulocytes Absolute 0.03 #; Lymphocytes # 1.5 10*3/uL (1.4-4.0); Lymphocytes % 20.9 % (21.3-54.2); Mean Platelet Volume 8.4 FL (9.6-12.0); Monocytes % 9.5 % (1.7-12.7); Neutrophils % 63.8 % (38.7-73.9); Platelet Count 439 T/CUMM (130-400); Red Blood Count 3.13 MC/CUMM (3.8-5.5); Red Cell Distribution Width 15.5 % (9.3-17.3); White Blood Count 7.3 T/CUMM (4-12)
[2020-05-02 06:38] LABS: Albumin 1.7 G/DL (3.4-5.0); Bilirubin,Total 0.6 MG/DL (0.2-1.0); Calcium 7.9 MG/DL (8.5-10.1); Osmolality,Calculated 274.7 MOS/KG (273-304); Risk Ratio 1.56; Thyroid Stimulating Hormone 0.949 uIU/ml (0.358-3.74); Total Protein 8.1 G/DL (6.4-8.3); VLDL CHOLESTEROL 8.6 MG/DL
[2020-05-02] MEDS ORDERED: BUPIVACAINE 0.25% /EPI 10 ML VIAL ONE (06:42)
[2020-05-02] MEDS ORDERED: LIDOCAINE 1%/EPI INJ 20 ML VIAL ONE (06:43)
[2020-05-02 07:37] LABS: Sedimentation Rate-Westergren 103 MM/HR (0-30)
[2020-05-02] MEDS: PHENYTOIN ER 100 MG CAPSULE PO SCH ×3 (09:12→21:54)
[2020-05-02] MEDS: ENOXAPARIN 40 MG/0.4 ML SYRINGE SUBCUT SCH (09:13)
[2020-05-02] MEDS: CLOPIDOGREL 75 MG TABLET PO SCH (09:13)
[2020-05-02] MEDS: LEVOFLOXACIN INJ 500 MG in PREMIX 1 EACH IV SCH (09:13)
[2020-05-02] MEDS: DOCUSATE SODIUM 100 MG CAPSULE PO SCH ×3 (09:13→21:55)
[2020-05-02] MEDS: PANTOPRAZOLE 40 MG TABLET PO SCH (09:13)
[2020-05-02] MEDS ORDERED: LIDOCAINE 2% 5 ML VIAL ONE (09:14)
[2020-05-02] MEDS ORDERED: propofoL 200 MG/20 ML VIAL IV ONE (09:14)
[2020-05-02] MEDS ORDERED: KETAMINE 500 MG/10 ML VIAL ONE (09:15)
[2020-05-02] MEDS ORDERED: MIDAZOLAM 2 MG/2 ML VIAL ONE (09:15)
[2020-05-02] MEDS ORDERED: fentaNYL 100 MCG/2 ML VIAL ONE (09:15)
[2020-05-02] MEDS: SODIUM HYPOCHLORITE 0.25% IRRIG 473 ML BOTTLE TOP SCH (09:15)
[2020-05-02] MEDS: VENLAFAXINE 100 MG TABLET PO SCH ×2 (09:16→21:54)
[2020-05-02] MEDS: levETIRAcetam 250 MG TABLET PO SCH (09:16)
[2020-05-02] MEDS: TOPIRAMATE 200 MG TABLET PO SCH (09:18)
[2020-05-02] MEDS: VANCOMYCIN INJ 1,250 MG in SODIUM CHLORIDE 0.9% 250 ML IV SCH ×2 (10:21→21:54)
[2020-05-02] MEDS: levETIRAcetam 500 MG TABLET PO SCH (21:54)
[2020-05-03 04:50] LABS: Basophils % 0.6 % (0.0-0.8); Eosinophils # 0.6 10*3/uL (0.0-0.87); Eosinophils % 9.4 % (0.00-10.9); Hematocrit 30.2 VOL% (35.7-47.0); Hemoglobin 9.2 GM/DL (12.0-16.0); Immature Granulocytes % 0.5 %; Immature Granulocytes Absolute 0.03 #; Lymphocytes # 1.3 10*3/uL (1.4-4.0); Mean Corpuscular HGB Conc 30.5 GM/DL (32-36); Mean Corpuscular Volume 103.1 FL (87-102); Mean Platelet Volume 8.3 FL (9.6-12.0); Monocytes % 11.4 % (1.7-12.7); Neutrophils % 57.1 % (38.7-73.9); Platelet Count 403 T/CUMM (130-400); Red Blood Count 2.93 MC/CUMM (3.8-5.5); Red Cell Distribution Width 15.4 % (9.3-17.3); White Blood Count 6.3 T/CUMM (4-12)
[2020-05-03 05:10] LABS: Calcium 7.9 MG/DL (8.5-10.1); Osmolality,Calculated 273.8 MOS/KG (273-304)
[2020-05-03] MEDS: LEVOFLOXACIN INJ 500 MG in PREMIX 1 EACH IV SCH (08:53)
[2020-05-03] MEDS: SODIUM HYPOCHLORITE 0.25% IRRIG 473 ML BOTTLE TOP SCH (08:53)
[2020-05-03] MEDS: ENOXAPARIN 40 MG/0.4 ML SYRINGE SUBCUT SCH (08:54)
[2020-05-03] MEDS: PANTOPRAZOLE 40 MG TABLET PO SCH (08:55)
[2020-05-03] MEDS: levETIRAcetam 250 MG TABLET PO SCH (08:56)
[2020-05-03] MEDS: CLOPIDOGREL 75 MG TABLET PO SCH (08:56)
[2020-05-03] MEDS: PHENYTOIN ER 100 MG CAPSULE PO SCH ×3 (08:56→20:29)
[2020-05-03] MEDS: VENLAFAXINE 100 MG TABLET PO SCH ×2 (08:57→20:31)
[2020-05-03] MEDS: TOPIRAMATE 200 MG TABLET PO SCH (08:57)
[2020-05-03] MEDS: DOCUSATE SODIUM 100 MG CAPSULE PO SCH ×2 (08:58→20:29)
[2020-05-03] MEDS: VANCOMYCIN INJ 1,250 MG in SODIUM CHLORIDE 0.9% 250 ML IV SCH ×2 (09:56→20:28)
[2020-05-03] MEDS: levETIRAcetam 500 MG TABLET PO SCH (20:39)
[2020-05-04 07:08] LABS: Calcium 8.1 MG/DL (8.5-10.1); Osmolality,Calculated 267.2 MOS/KG (273-304)
[2020-05-04 07:26] LABS: Basophils # 0.1 10*3/uL (0.0-0.2); Basophils % 0.9 % (0.0-0.8); Eosinophils # 0.6 10*3/uL (0.0-0.87); Hematocrit 41.4 VOL% (35.7-47.0); Hemoglobin 13.1 GM/DL (12.0-16.0); Immature Granulocytes % 0.5 %; Immature Granulocytes Absolute 0.04 #; Lymphocytes # 1.4 10*3/uL (1.4-4.0); Lymphocytes % 18.3 % (21.3-54.2); Mean Corpuscular HGB Conc 31.6 GM/DL (32-36); Mean Corpuscular Volume 98.8 FL (87-102); Mean Platelet Volume 8.4 FL (9.6-12.0); Monocytes % 10.4 % (1.7-12.7); NRBC # 0.02 10*3/uL; Neutrophils % 61.9 % (38.7-73.9); Platelet Count 354 T/CUMM (130-400); Red Blood Count 4.19 MC/CUMM (3.8-5.5); Red Cell Distribution Width 15.4 % (9.3-17.3); White Blood Count 7.6 T/CUMM (4-12)
[2020-05-04] MEDS: VANCOMYCIN INJ 1,250 MG in SODIUM CHLORIDE 0.9% 250 ML IV SCH ×2 (08:42→21:57)
[2020-05-04] MEDS: LEVOFLOXACIN INJ 500 MG in PREMIX 1 EACH IV SCH (08:43)
[2020-05-04] MEDS: PHENYTOIN ER 100 MG CAPSULE PO SCH ×3 (08:44→20:35)
[2020-05-04] MEDS: levETIRAcetam 250 MG TABLET PO SCH (08:44)
[2020-05-04] MEDS: ENOXAPARIN 40 MG/0.4 ML SYRINGE SUBCUT SCH (08:44)
[2020-05-04] MEDS: CLOPIDOGREL 75 MG TABLET PO SCH (08:44)
[2020-05-04] MEDS: VENLAFAXINE 100 MG TABLET PO SCH ×2 (08:44→20:34)
[2020-05-04] MEDS: PANTOPRAZOLE 40 MG TABLET PO SCH (08:44)
[2020-05-04] MEDS: TOPIRAMATE 200 MG TABLET PO SCH (08:44)
[2020-05-04] MEDS: DOCUSATE SODIUM 100 MG CAPSULE PO SCH ×2 (08:45→20:35)
[2020-05-04] MEDS: SODIUM HYPOCHLORITE 0.25% IRRIG 473 ML BOTTLE TOP SCH (08:45)
[2020-05-04] MEDS: levETIRAcetam 500 MG TABLET PO SCH (20:34)
[2020-05-05 07:21] LABS: Basophils # 0.1 10*3/uL (0.0-0.2); Basophils % 0.9 % (0.0-0.8); Eosinophils # 0.4 10*3/uL (0.0-0.87); Eosinophils % 6.6 % (0.00-10.9); Hematocrit 34.7 VOL% (35.7-47.0); Hemoglobin 10.6 GM/DL (12.0-16.0); Immature Granulocytes % 0.5 %; Immature Granulocytes Absolute 0.03 #; Lymphocytes # 1.4 10*3/uL (1.4-4.0); Lymphocytes % 20.9 % (21.3-54.2); Mean Corpuscular HGB Conc 30.5 GM/DL (32-36); Mean Corpuscular Volume 102.1 FL (87-102); Mean Platelet Volume 8.1 FL (9.6-12.0); Monocytes % 9.3 % (1.7-12.7); Neutrophils % 61.8 % (38.7-73.9); Platelet Count 459 T/CUMM (130-400); Red Cell Distribution Width 15.6 % (9.3-17.3); White Blood Count 6.6 T/CUMM (4-12)
[2020-05-05 07:28] LABS: Calcium 8.2 MG/DL (8.5-10.1); Osmolality,Calculated 274.8 MOS/KG (273-304)
[2020-05-05] MEDS: levETIRAcetam 250 MG TABLET PO SCH (08:00)
[2020-05-05] MEDS: VENLAFAXINE 100 MG TABLET PO SCH ×2 (08:00→21:07)
[2020-05-05] MEDS: PANTOPRAZOLE 40 MG TABLET PO SCH (08:00)
[2020-05-05] MEDS: TOPIRAMATE 200 MG TABLET PO SCH (08:00)
[2020-05-05] MEDS: PHENYTOIN ER 100 MG CAPSULE PO SCH ×3 (08:00→21:07)
[2020-05-05] MEDS: LEVOFLOXACIN INJ 500 MG in PREMIX 1 EACH IV SCH (08:01)
[2020-05-05] MEDS: CLOPIDOGREL 75 MG TABLET PO SCH (08:01)
[2020-05-05] MEDS: ENOXAPARIN 40 MG/0.4 ML SYRINGE SUBCUT SCH (08:01)
[2020-05-05] MEDS: DOCUSATE SODIUM 100 MG CAPSULE PO SCH ×2 (08:02→21:08)
[2020-05-05] MEDS: SODIUM HYPOCHLORITE 0.25% IRRIG 473 ML BOTTLE TOP SCH (08:02)
[2020-05-05] MEDS: VANCOMYCIN INJ 1,250 MG in SODIUM CHLORIDE 0.9% 250 ML IV SCH (15:38)
[2020-05-05] MEDS: levETIRAcetam 500 MG TABLET PO SCH (21:08)
[2020-05-06] MEDS: VENLAFAXINE 100 MG TABLET PO SCH ×2 (11:14→21:17)
[2020-05-06] MEDS: ENOXAPARIN 40 MG/0.4 ML SYRINGE SUBCUT SCH (11:14)
[2020-05-06] MEDS: TOPIRAMATE 200 MG TABLET PO SCH (11:14)
[2020-05-06] MEDS: PHENYTOIN ER 100 MG CAPSULE PO SCH ×3 (11:15→21:17)
[2020-05-06] MEDS: PANTOPRAZOLE 40 MG TABLET PO SCH (11:15)
[2020-05-06] MEDS: DOCUSATE SODIUM 100 MG CAPSULE PO SCH ×2 (11:16→21:17)
[2020-05-06] MEDS: levETIRAcetam 250 MG TABLET PO SCH (11:16)
[2020-05-06] MEDS: CLOPIDOGREL 75 MG TABLET PO SCH (11:16)
[2020-05-06] MEDS: SODIUM HYPOCHLORITE 0.25% IRRIG 473 ML BOTTLE TOP SCH (11:22)
[2020-05-06] MEDS: LEVOFLOXACIN 500 MG TABLET PO SCH (14:28)
[2020-05-06] MEDS: CLINDAMYCIN 300 MG CAPSULE PO SCH ×3 (14:28→21:17)
[2020-05-06] MEDS: LEVOFLOXACIN INJ 500 MG in PREMIX 1 EACH IV SCH (16:17)
[2020-05-06] MEDS: VANCOMYCIN INJ 1,250 MG in SODIUM CHLORIDE 0.9% 250 ML IV SCH (16:18)
[2020-05-06] MEDS: levETIRAcetam 500 MG TABLET PO SCH (21:17)
[2020-05-07 05:24] LABS: Basophils # 0.1 10*3/uL (0.0-0.2); Basophils % 1.1 % (0.0-0.8); Eosinophils # 0.3 10*3/uL (0.0-0.87); Hematocrit 29.5 VOL% (35.7-47.0); Hemoglobin 9.1 GM/DL (12.0-16.0); Immature Granulocytes % 0.6 %; Immature Granulocytes Absolute 0.03 #; Lymphocytes # 1.3 10*3/uL (1.4-4.0); Lymphocytes % 25.3 % (21.3-54.2); Mean Corpuscular HGB Conc 30.8 GM/DL (32-36); Mean Corpuscular Volume 101.4 FL (87-102); Mean Platelet Volume 8.1 FL (9.6-12.0); Monocytes % 12.5 % (1.7-12.7); Neutrophils % 55.5 % (38.7-73.9); Platelet Count 357 T/CUMM (130-400); Red Blood Count 2.91 MC/CUMM (3.8-5.5); Red Cell Distribution Width 15.9 % (9.3-17.3); White Blood Count 5.2 T/CUMM (4-12)
[2020-05-07 05:41] LABS: Calcium 7.9 MG/DL (8.5-10.1); Osmolality,Calculated 279.5 MOS/KG (273-304)
[2020-05-07 05:48] LABS: Eosinophils 9 % (0-10); Lymphocytes 23 % (20-55); Segmented Neutrophils 57 % (50-85); Total Cells Counted 100
[2020-05-07 05:49] LABS: Hypochromasia 1+; Microcytosis 1+; Platelet Estimate Adequate
[2020-05-07] MEDS: DOCUSATE SODIUM 100 MG CAPSULE PO SCH ×2 (08:54→20:12)
[2020-05-07] MEDS: levETIRAcetam 250 MG TABLET PO SCH (08:54)
[2020-05-07] MEDS: TOPIRAMATE 200 MG TABLET PO SCH (08:54)
[2020-05-07] MEDS: VENLAFAXINE 100 MG TABLET PO SCH ×2 (08:54→20:12)
[2020-05-07] MEDS: PHENYTOIN ER 100 MG CAPSULE PO SCH ×3 (08:54→20:12)
[2020-05-07] MEDS: CLINDAMYCIN 300 MG CAPSULE PO SCH ×4 (08:55→20:12)
[2020-05-07] MEDS: LEVOFLOXACIN 500 MG TABLET PO SCH (08:55)
[2020-05-07] MEDS: CLOPIDOGREL 75 MG TABLET PO SCH (08:55)
[2020-05-07] MEDS: ENOXAPARIN 40 MG/0.4 ML SYRINGE SUBCUT SCH (08:55)
[2020-05-07] MEDS: SODIUM HYPOCHLORITE 0.25% IRRIG 473 ML BOTTLE TOP SCH (08:56)
[2020-05-07] MEDS: PANTOPRAZOLE 40 MG TABLET PO SCH (08:56)
[2020-05-07] MEDS ORDERED: TUBERCULIN SKIN TEST 0.1 ML SYRINGE INTRADERM ONE (11:08)
[2020-05-07] MEDS: levETIRAcetam 500 MG TABLET PO SCH (20:13)
[2020-05-08 05:44] LABS: Eosinophils # 0.3 10*3/uL (0.0-0.87); Eosinophils % 6.1 % (0.00-10.9); Hematocrit 29.4 VOL% (35.7-47.0); Hemoglobin 9.3 GM/DL (12.0-16.0); Immature Granulocytes % 0.7 %; Immature Granulocytes Absolute 0.03 #; Lymphocytes # 1.3 10*3/uL (1.4-4.0); Lymphocytes % 31.4 % (21.3-54.2); Mean Corpuscular HGB Conc 31.6 GM/DL (32-36); Mean Corpuscular Volume 100.3 FL (87-102); Mean Platelet Volume 8.4 FL (9.6-12.0); Monocytes % 12.8 % (1.7-12.7); Platelet Count 369 T/CUMM (130-400); Red Blood Count 2.93 MC/CUMM (3.8-5.5); Red Cell Distribution Width 15.9 % (9.3-17.3); White Blood Count 4.1 T/CUMM (4-12)
[2020-05-08 06:01] LABS: Calcium 8.1 MG/DL (8.5-10.1); Osmolality,Calculated 275.7 MOS/KG (273-304)
[2020-05-08 06:11] LABS: Eosinophils 5 % (0-10); Lymphocytes 29 % (20-55); Platelet Estimate Adequate; Segmented Neutrophils 54 % (50-85); Total Cells Counted 100
[2020-05-08 06:12] LABS: Hypochromasia 1+; Microcytosis 1+
[2020-05-08] MEDS: TOPIRAMATE 200 MG TABLET PO SCH (08:17)
[2020-05-08] MEDS: CLINDAMYCIN 300 MG CAPSULE PO SCH ×4 (08:17→20:00)
[2020-05-08] MEDS: DOCUSATE SODIUM 100 MG CAPSULE PO SCH ×2 (08:17→20:00)
[2020-05-08] MEDS: VENLAFAXINE 100 MG TABLET PO SCH ×2 (08:17→20:00)
[2020-05-08] MEDS: CLOPIDOGREL 75 MG TABLET PO SCH (08:17)
[2020-05-08] MEDS: levETIRAcetam 250 MG TABLET PO SCH (08:17)
[2020-05-08] MEDS: PANTOPRAZOLE 40 MG TABLET PO SCH (08:18)
[2020-05-08] MEDS: ENOXAPARIN 40 MG/0.4 ML SYRINGE SUBCUT SCH (08:18)
[2020-05-08] MEDS: PHENYTOIN ER 100 MG CAPSULE PO SCH ×3 (08:18→20:00)
[2020-05-08] MEDS: LEVOFLOXACIN 500 MG TABLET PO SCH (08:18)
[2020-05-08] MEDS: SODIUM HYPOCHLORITE 0.25% IRRIG 473 ML BOTTLE TOP SCH (08:18)
[2020-05-08] MEDS: levETIRAcetam 500 MG TABLET PO SCH (20:00)
[2020-05-09 05:33] LABS: Basophils % 0.7 % (0.0-0.8); Eosinophils # 0.2 10*3/uL (0.0-0.87); Eosinophils % 4.4 % (0.00-10.9); Hematocrit 30.1 VOL% (35.7-47.0); Hemoglobin 9.4 GM/DL (12.0-16.0); Immature Granulocytes % 0.5 %; Immature Granulocytes Absolute 0.02 #; Lymphocytes # 1.2 10*3/uL (1.4-4.0); Lymphocytes % 28.2 % (21.3-54.2); Mean Corpuscular HGB Conc 31.2 GM/DL (32-36); Mean Corpuscular Volume 100.7 FL (87-102); Mean Platelet Volume 8.2 FL (9.6-12.0); Monocytes % 14.5 % (1.7-12.7); Neutrophils % 51.7 % (38.7-73.9); Platelet Count 378 T/CUMM (130-400); Red Blood Count 2.99 MC/CUMM (3.8-5.5); Red Cell Distribution Width 15.9 % (9.3-17.3); White Blood Count 4.3 T/CUMM (4-12)
[2020-05-09 05:59] LABS: Eosinophils 8 % (0-10); Lymphocytes 22 % (20-55); Nucleated Red Blood Cells 1 (0-5); Platelet Estimate Normal; Segmented Neutrophils 59 % (50-85); Total Cells Counted 100
[2020-05-09 06:00] LABS: Hypochromasia Slight; Macrocytosis Slight
[2020-05-09] MEDS: PHENYTOIN ER 100 MG CAPSULE PO SCH ×3 (08:40→20:32)
[2020-05-09] MEDS: VENLAFAXINE 100 MG TABLET PO SCH ×2 (08:40→20:32)
[2020-05-09] MEDS: TOPIRAMATE 200 MG TABLET PO SCH (08:40)
[2020-05-09] MEDS: PANTOPRAZOLE 40 MG TABLET PO SCH (08:41)
[2020-05-09] MEDS: CLOPIDOGREL 75 MG TABLET PO SCH (08:41)
[2020-05-09] MEDS: CLINDAMYCIN 300 MG CAPSULE PO SCH ×4 (08:41→20:31)
[2020-05-09] MEDS: ENOXAPARIN 40 MG/0.4 ML SYRINGE SUBCUT SCH (08:41)
[2020-05-09] MEDS: LEVOFLOXACIN 500 MG TABLET PO SCH (08:41)
[2020-05-09] MEDS: DOCUSATE SODIUM 100 MG CAPSULE PO SCH ×2 (08:41→20:32)
[2020-05-09] MEDS: SODIUM HYPOCHLORITE 0.25% IRRIG 473 ML BOTTLE TOP SCH (08:45)
[2020-05-09] MEDS: levETIRAcetam 250 MG TABLET PO SCH (08:45)
[2020-05-09] MEDS: levETIRAcetam 500 MG TABLET PO SCH (20:31)
[2020-05-10 04:46] LABS: Basophils # 0.1 10*3/uL (0.0-0.2); Basophils % 1.2 % (0.0-0.8); Eosinophils # 0.2 10*3/uL (0.0-0.87); Eosinophils % 4.5 % (0.00-10.9); Hematocrit 30.4 VOL% (35.7-47.0); Hemoglobin 9.5 GM/DL (12.0-16.0); Immature Granulocytes % 0.5 %; Immature Granulocytes Absolute 0.02 #; Lymphocytes # 1.5 10*3/uL (1.4-4.0); Lymphocytes % 35.1 % (21.3-54.2); Mean Corpuscular HGB Conc 31.3 GM/DL (32-36); Mean Platelet Volume 8.1 FL (9.6-12.0); Monocytes % 15.2 % (1.7-12.7); Neutrophils % 43.5 % (38.7-73.9); Platelet Count 348 T/CUMM (130-400); Red Blood Count 3.07 MC/CUMM (3.8-5.5); Red Cell Distribution Width 16.2 % (9.3-17.3); White Blood Count 4.2 T/CUMM (4-12)
[2020-05-10 05:03] LABS: Calcium 7.9 MG/DL (8.5-10.1); Osmolality,Calculated 276.7 MOS/KG (273-304)
[2020-05-10 05:20] LABS: Hypochromasia 1+; Macrocytosis Slight
[2020-05-10 05:21] LABS: Platelet Estimate Normal
[2020-05-10] MEDS: levETIRAcetam 250 MG TABLET PO SCH (09:52)
[2020-05-10] MEDS: ENOXAPARIN 40 MG/0.4 ML SYRINGE SUBCUT SCH (09:52)
[2020-05-10] MEDS: LEVOFLOXACIN 500 MG TABLET PO SCH (09:52)
[2020-05-10] MEDS: CLINDAMYCIN 300 MG CAPSULE PO SCH ×4 (09:53→20:47)
[2020-05-10] MEDS: CLOPIDOGREL 75 MG TABLET PO SCH (09:53)
[2020-05-10] MEDS: TOPIRAMATE 200 MG TABLET PO SCH (09:53)
[2020-05-10] MEDS: PANTOPRAZOLE 40 MG TABLET PO SCH (09:53)
[2020-05-10] MEDS: VENLAFAXINE 100 MG TABLET PO SCH ×2 (09:53→20:47)
[2020-05-10] MEDS: PHENYTOIN ER 100 MG CAPSULE PO SCH ×3 (09:53→20:47)
[2020-05-10] MEDS: DOCUSATE SODIUM 100 MG CAPSULE PO SCH ×2 (09:53→20:47)
[2020-05-10] MEDS: SODIUM HYPOCHLORITE 0.25% IRRIG 473 ML BOTTLE TOP SCH (10:45)
[2020-05-10] MEDS: ACETAMINOPHEN 325 MG TABLET PO PRN (15:09)
[2020-05-10] MEDS: levETIRAcetam 500 MG TABLET PO SCH (20:47)
[2020-05-11] MEDS: CLOPIDOGREL 75 MG TABLET PO SCH (08:45)
[2020-05-11] MEDS: levETIRAcetam 250 MG TABLET PO SCH (08:45)
[2020-05-11] MEDS: ENOXAPARIN 40 MG/0.4 ML SYRINGE SUBCUT SCH (08:45)
[2020-05-11] MEDS: LEVOFLOXACIN 500 MG TABLET PO SCH (08:46)
[2020-05-11] MEDS: CLINDAMYCIN 300 MG CAPSULE PO SCH ×4 (08:46→21:37)
[2020-05-11] MEDS: PHENYTOIN ER 100 MG CAPSULE PO SCH ×3 (08:47→21:37)
[2020-05-11] MEDS: PANTOPRAZOLE 40 MG TABLET PO SCH (08:47)
[2020-05-11] MEDS: TOPIRAMATE 200 MG TABLET PO SCH (08:47)
[2020-05-11] MEDS: SODIUM HYPOCHLORITE 0.25% IRRIG 473 ML BOTTLE TOP SCH (08:47)
[2020-05-11] MEDS: DOCUSATE SODIUM 100 MG CAPSULE PO SCH ×2 (08:47→21:37)
[2020-05-11] MEDS: VENLAFAXINE 100 MG TABLET PO SCH ×2 (08:47→21:37)
[2020-05-11] MEDS: ACETAMINOPHEN 325 MG TABLET PO PRN (17:51)
[2020-05-11] MEDS: levETIRAcetam 500 MG TABLET PO SCH (21:37)
[2020-05-12] MEDS: PHENYTOIN ER 100 MG CAPSULE PO SCH ×3 (09:24→21:09)
[2020-05-12] MEDS: TOPIRAMATE 200 MG TABLET PO SCH (09:24)
[2020-05-12] MEDS: levETIRAcetam 250 MG TABLET PO SCH (09:24)
[2020-05-12] MEDS: PANTOPRAZOLE 40 MG TABLET PO SCH (09:24)
[2020-05-12] MEDS: DOCUSATE SODIUM 100 MG CAPSULE PO SCH ×2 (09:25→21:09)
[2020-05-12] MEDS: CLOPIDOGREL 75 MG TABLET PO SCH (09:25)
[2020-05-12] MEDS: CLINDAMYCIN 300 MG CAPSULE PO SCH ×4 (09:25→21:10)
[2020-05-12] MEDS: VENLAFAXINE 100 MG TABLET PO SCH ×2 (09:25→21:09)
[2020-05-12] MEDS: ENOXAPARIN 40 MG/0.4 ML SYRINGE SUBCUT SCH (09:25)
[2020-05-12] MEDS: LEVOFLOXACIN 500 MG TABLET PO SCH (09:25)
[2020-05-12] MEDS: SODIUM HYPOCHLORITE 0.25% IRRIG 473 ML BOTTLE TOP SCH (11:15)
[2020-05-12] MEDS: levETIRAcetam 500 MG TABLET PO SCH (21:09)
[2020-05-13 06:21] LABS: Basophils # 0.1 10*3/uL (0.0-0.2); Basophils % 1.2 % (0.0-0.8); Eosinophils # 0.1 10*3/uL (0.0-0.87); Eosinophils % 3.2 % (0.00-10.9); Hematocrit 32.4 VOL% (35.7-47.0); Hemoglobin 10.3 GM/DL (12.0-16.0); Immature Granulocytes % 0.5 %; Immature Granulocytes Absolute 0.02 #; Lymphocytes # 1.4 10*3/uL (1.4-4.0); Lymphocytes % 34.7 % (21.3-54.2); Mean Corpuscular HGB Conc 31.8 GM/DL (32-36); Mean Corpuscular Volume 100.3 FL (87-102); Mean Platelet Volume 8.3 FL (9.6-12.0); Monocytes % 13.2 % (1.7-12.7); Neutrophils % 47.2 % (38.7-73.9); Platelet Count 281 T/CUMM (130-400); Red Blood Count 3.23 MC/CUMM (3.8-5.5); White Blood Count 4.1 T/CUMM (4-12)
[2020-05-13 06:41] LABS: Calcium 8.2 MG/DL (8.5-10.1); Osmolality,Calculated 276.7 MOS/KG (273-304)
[2020-05-13] MEDS: PHENYTOIN ER 100 MG CAPSULE PO SCH ×2 (08:30→14:54)
[2020-05-13] MEDS: VENLAFAXINE 100 MG TABLET PO SCH (08:30)
[2020-05-13] MEDS: LEVOFLOXACIN 500 MG TABLET PO SCH (08:30)
[2020-05-13] MEDS: PANTOPRAZOLE 40 MG TABLET PO SCH (08:30)
[2020-05-13] MEDS: DOCUSATE SODIUM 100 MG CAPSULE PO SCH (08:30)
[2020-05-13] MEDS: CLINDAMYCIN 300 MG CAPSULE PO SCH ×2 (08:30→13:41)
[2020-05-13] MEDS: CLOPIDOGREL 75 MG TABLET PO SCH (08:30)
[2020-05-13] MEDS: TOPIRAMATE 200 MG TABLET PO SCH (08:31)
[2020-05-13] MEDS: ENOXAPARIN 40 MG/0.4 ML SYRINGE SUBCUT SCH (08:31)
[2020-05-13] MEDS: SODIUM HYPOCHLORITE 0.25% IRRIG 473 ML BOTTLE TOP SCH (08:31)
[2020-05-13] MEDS: levETIRAcetam 250 MG TABLET PO SCH (08:32)
[2020-05-13] MEDS ORDERED: GENTAMICIN 0.1% CREAM 15 GM TUBE TOP SCH (11:00)
[2020-05-13] MEDS ORDERED: ACETIC ACID 0.25% IRRIGATION 1,000 ML BOTTLE IRRIG SCH (11:00)
[2020-05-13] MEDS ORDERED: SKIN HEALING OINT (AQUAPHOR) 50 GM TUBE TOP SCH (11:00)
[2020-05-13 15:32] VITALS: BP 109/68
== END 2020-05-13 15:58 | disposition swing bed (61) | DRG 264 ==
LOC: N.EDINP 12:25 → N.ED 12:25 → N.5E 18:15
PROVIDERS: ADMIT Family Medicine; ATTEND Family Medicine

== ENCOUNTER 2022-08-20 17:29 | Inpatient (IN) ==
[2022-08-20] MEDS ORDERED: VANCOMYCIN INJ 1,000 MG in SODIUM CHLORIDE 0.9% 250 ML IV STA (21:18)
[2022-08-20] MEDS ORDERED: SODIUM CHLORIDE 0.9% 500 ML IV STA (21:18)
[2022-08-20 22:52] LABS: Basophils % 0.5 % (0.0-0.8); Eosinophils # 0.3 10*3/uL (0.0-0.87); Eosinophils % 3.9 % (0.00-10.9); Hematocrit 32.3 VOL% (35.7-47.0); Immature Granulocytes Absolute 0.08 #; Lymphocytes # 1.5 10*3/uL (1.4-4.0); Mean Corpuscular Volume 104.9 FL (87-102); Mean Platelet Volume 8.4 FL (9.6-12.0); Monocytes # 0.8 10*3/uL (0.11-0.8); Monocytes % 9.9 % (1.7-12.7); Neutrophils % 65.7 % (38.7-73.9); Platelet Count 387 T/CUMM (130-400); Red Blood Count 3.08 MC/CUMM (3.8-5.5); Red Cell Distribution Width 13.7 % (9.3-17.3); White Blood Count 7.8 T/CUMM (4-12)
[2022-08-20 23:08] LABS: Alanine Aminotransferase 12 U/L (13-56); Albumin 2.3 G/DL (3.4-5.0); Alkaline Phosphatase 243 U/L (45-117); Aspartate Amino Transferase 15 U/L (0-37); Bilirubin,Total < 0.39 MG/DL (0.20-1.00); Blood Urea Nitrogen 15 MG/DL (7-18); Calcium 8.1 MG/DL (8.5-10.1); Carbon Dioxide 24 MMOL/L (21-32); Chloride 112 MMOL/L (98-107); Glucose 98 MG/DL (74-106); Potassium 4.4 MMOL/L (3.5-5.1); Sodium 143 MMOL/L (136-145); Total Protein 8.8 G/DL (6.4-8.2)
[2022-08-21] MEDS ORDERED: ACETAMINOPHEN 325 MG TABLET PO PRN (00:20)
[2022-08-21] MEDS ORDERED: ONDANSETRON 4 MG/2 ML VIAL IV PRN (00:20)
[2022-08-21 00:34] LABS: Glucose,Urine (UA) Negative (Negative); Ketones,Urine Negative (Negative); Mucus,Urine Occasional /LPF (Occasional); Nitrite,Urine Negative (Negative); Protein,Urine 30 mg/dL (Negative); RBC,Urine 6 /HPF (0-4); Squamous Epithelial Cell,Urine Occasional /HPF (0-10); Urine Appearance Clear (Clear); Urine Color Yellow (Yellow); Urine Specific Gravity 1.025 (1.001-1.035)
[2022-08-21 00:35] LABS: Bilirubin,Urine Negative (Negative); Blood, Urine Trace mg/dL (Negative); Urine Urobilinogen 0.2 eU/dL (<2.0)
[2022-08-21 06:52] LABS: Basophils % 0.5 % (0.0-0.8); Eosinophils # 0.2 10*3/uL (0.0-0.87); Eosinophils % 2.9 % (0.00-10.9); Hemoglobin 8.9 GM/DL (12.0-16.0); Immature Granulocytes % 0.7 %; Immature Granulocytes Absolute 0.06 #; Lymphocytes # 1.2 10*3/uL (1.4-4.0); Lymphocytes % 14.6 % (21.3-54.2); Mean Corpuscular HGB Conc 30.7 GM/DL (32-36); Mean Corpuscular Volume 103.6 FL (87-102); Monocytes # 0.8 10*3/uL (0.11-0.8); Monocytes % 9.4 % (1.7-12.7); Neutrophils % 71.9 % (38.7-73.9); Platelet Count 334 T/CUMM (130-400); Red Cell Distribution Width 13.6 % (9.3-17.3); White Blood Count 8.1 T/CUMM (4-12)
[2022-08-21 07:13] LABS: Alanine Aminotransferase 10 U/L (13-56); Albumin 1.9 G/DL (3.4-5.0); Alkaline Phosphatase 219 U/L (45-117); Aspartate Amino Transferase 16 U/L (0-37); Bilirubin,Total < 0.39 MG/DL (0.20-1.00); Blood Urea Nitrogen 14 MG/DL (7-18); Calcium 7.7 MG/DL (8.5-10.1); Carbon Dioxide 21 MMOL/L (21-32); Chloride 116 MMOL/L (98-107); Glucose 102 MG/DL (74-106); Osmolality,Calculated 286.8 MOS/KG (273-304); Potassium 4.1 MMOL/L (3.5-5.1); Sodium 144 MMOL/L (136-145); Total Protein 7.4 G/DL (6.4-8.2)
[2022-08-21] MEDS: levETIRAcetam 250 MG TABLET PO SCH (09:01)
[2022-08-21] MEDS: SOLIFENACIN 5 MG TABLET PO SCH (09:01)
[2022-08-21] MEDS: PHENYTOIN ER 100 MG CAPSULE PO SCH ×3 (09:01→20:42)
[2022-08-21] MEDS: ENOXAPARIN 40 MG/0.4 ML SYRINGE SUBCUT SCH (09:02)
[2022-08-21] MEDS: CLOPIDOGREL 75 MG TABLET PO SCH (09:02)
[2022-08-21] MEDS: PANTOPRAZOLE 40 MG TABLET PO SCH (09:02)
[2022-08-21] MEDS: TOPIRAMATE 100 MG TABLET PO SCH (09:02)
[2022-08-21] MEDS: VENLAFAXINE 100 MG TABLET PO SCH ×2 (10:43→11:31)
[2022-08-21] MEDS: VANCOMYCIN INJ 1,250 MG in SODIUM CHLORIDE 0.9% 250 ML IV SCH ×2 (11:33→21:03)
[2022-08-21] MEDS: cefTRIAXone 1,000 MG in SODIUM CHLORIDE 0.9% 100 ML IV SCH (14:24)
[2022-08-21] MEDS ORDERED: SKIN HEALING OINT (AQUAPHOR) 50 GM TUBE TOP PRN (15:00)
[2022-08-21] MEDS: METOPROLOL TARTRATE 25 MG TABLET PO SCH (20:43)
[2022-08-21] MEDS: levETIRAcetam 500 MG TABLET PO SCH (20:43)
[2022-08-21] MEDS: VENLAFAXINE 100 MG PO SCH (20:46)
[2022-08-22 05:51] LABS: Basophils # 0.1 10*3/uL (0.0-0.2); Basophils % 0.7 % (0.0-0.8); Eosinophils # 0.3 10*3/uL (0.0-0.87); Eosinophils % 4.5 % (0.00-10.9); Hematocrit 29.3 VOL% (35.7-47.0); Hemoglobin 8.8 GM/DL (12.0-16.0); Immature Granulocytes Absolute 0.07 #; Lymphocytes # 1.6 10*3/uL (1.4-4.0); Lymphocytes % 23.3 % (21.3-54.2); Mean Corpuscular Volume 105.8 FL (87-102); Mean Platelet Volume 8.2 FL (9.6-12.0); Monocytes # 0.6 10*3/uL (0.11-0.8); Monocytes % 8.9 % (1.7-12.7); Neutrophils % 61.6 % (38.7-73.9); Platelet Count 335 T/CUMM (130-400); Red Blood Count 2.77 MC/CUMM (3.8-5.5); Red Cell Distribution Width 13.9 % (9.3-17.3); White Blood Count 6.9 T/CUMM (4-12)
[2022-08-22 06:13] LABS: Calcium 7.8 MG/DL (8.5-10.1); Potassium 4.2 MMOL/L (3.5-5.1)
[2022-08-22 06:20] LABS: Folate 3.78 NG/ML (5.38-24.0); Vitamin B12 423 PG/ML (211-911)
[2022-08-22 06:21] LABS: % Iron Saturation 30.1 % (18-50); Ferritin 162.3 ng/mL (8-252)
[2022-08-22 06:36] LABS: Anisocytosis Slight; Platelet Estimate Normal
[2022-08-22 06:37] LABS: Hypochromia Slight; Macrocytosis Slight
[2022-08-22 07:53] LABS: Sedimentation Rate-Westergren 121 MM/HR (0-30)
[2022-08-22] MEDS: ENOXAPARIN 40 MG/0.4 ML SYRINGE SUBCUT SCH (08:53)
[2022-08-22] MEDS: SOLIFENACIN 5 MG TABLET PO SCH (08:54)
[2022-08-22] MEDS: PHENYTOIN ER 100 MG CAPSULE PO SCH ×3 (08:54→20:08)
[2022-08-22] MEDS: TOPIRAMATE 100 MG TABLET PO SCH (08:54)
[2022-08-22] MEDS: PANTOPRAZOLE 40 MG TABLET PO SCH (08:54)
[2022-08-22] MEDS: CLOPIDOGREL 75 MG TABLET PO SCH (08:54)
[2022-08-22] MEDS: VENLAFAXINE 100 MG PO SCH ×2 (08:55→20:08)
[2022-08-22] MEDS: levETIRAcetam 250 MG TABLET PO SCH (08:56)
[2022-08-22] MEDS: VANCOMYCIN INJ 1,250 MG in SODIUM CHLORIDE 0.9% 250 ML IV SCH ×2 (09:52→21:16)
[2022-08-22] MEDS: cefTRIAXone 1,000 MG in SODIUM CHLORIDE 0.9% 100 ML IV SCH (14:18)
[2022-08-22] MEDS ORDERED: ERGOCALCIFEROL 50,000 UNIT CAPSULE PO ONE (15:48)
[2022-08-22] MEDS: FOLIC ACID 1 MG TABLET PO SCH (17:02)
[2022-08-22] MEDS: levETIRAcetam 500 MG TABLET PO SCH (20:08)
[2022-08-22] MEDS: METOPROLOL TARTRATE 25 MG TABLET PO SCH (20:08)
[2022-08-23 05:37] LABS: Basophils # 0.1 10*3/uL (0.0-0.2); Basophils % 0.7 % (0.0-0.8); Eosinophils # 0.4 10*3/uL (0.0-0.87); Eosinophils % 5.5 % (0.00-10.9); Hematocrit 31.2 VOL% (35.7-47.0); Hemoglobin 9.8 GM/DL (12.0-16.0); Immature Granulocytes Absolute 0.07 #; Lymphocytes # 1.5 10*3/uL (1.4-4.0); Lymphocytes % 22.3 % (21.3-54.2); Mean Corpuscular HGB Conc 31.4 GM/DL (32-36); Mean Corpuscular Volume 102.6 FL (87-102); Mean Platelet Volume 8.2 FL (9.6-12.0); Monocytes # 0.6 10*3/uL (0.11-0.8); Monocytes % 9.6 % (1.7-12.7); Neutrophils % 60.9 % (38.7-73.9); Platelet Count 318 T/CUMM (130-400); Red Blood Count 3.04 MC/CUMM (3.8-5.5); Red Cell Distribution Width 13.7 % (9.3-17.3); White Blood Count 6.7 T/CUMM (4-12)
[2022-08-23 05:51] LABS: Osmolality,Calculated 275.5 MOS/KG (273-304); Potassium 4.4 MMOL/L (3.5-5.1)
[2022-08-23 06:01] LABS: Anisocytosis 1+; Macrocytosis 1+; Platelet Estimate Normal
[2022-08-23] MEDS: CLOPIDOGREL 75 MG TABLET PO SCH (08:50)
[2022-08-23] MEDS: SOLIFENACIN 5 MG TABLET PO SCH (08:50)
[2022-08-23] MEDS: TOPIRAMATE 100 MG TABLET PO SCH (08:50)
[2022-08-23] MEDS: VENLAFAXINE 100 MG PO SCH ×2 (08:50→21:22)
[2022-08-23] MEDS: levETIRAcetam 250 MG TABLET PO SCH (08:50)
[2022-08-23] MEDS: PANTOPRAZOLE 40 MG TABLET PO SCH (08:51)
[2022-08-23] MEDS: PHENYTOIN ER 100 MG CAPSULE PO SCH ×3 (08:51→21:21)
[2022-08-23] MEDS: ENOXAPARIN 40 MG/0.4 ML SYRINGE SUBCUT SCH (08:51)
[2022-08-23] MEDS: FOLIC ACID 1 MG TABLET PO SCH (08:51)
[2022-08-23] MEDS ORDERED: ERGOCALCIFEROL 50,000 UNIT CAPSULE PO ONE (10:51)
[2022-08-23] MEDS ORDERED: ZALEPLON 5 MG CAPSULE PO PRN (10:52)
[2022-08-23] MEDS: cefTRIAXone 1,000 MG in SODIUM CHLORIDE 0.9% 100 ML IV SCH (14:36)
[2022-08-23] MEDS: VANCOMYCIN INJ 1,250 MG in SODIUM CHLORIDE 0.9% 250 ML IV SCH (16:03)
[2022-08-23] MEDS: METOPROLOL TARTRATE 25 MG TABLET PO SCH (21:21)
[2022-08-23] MEDS: levETIRAcetam 500 MG TABLET PO SCH (21:21)
[2022-08-24 05:45] LABS: Basophils # 0.1 10*3/uL (0.0-0.2); Basophils % 0.6 % (0.0-0.8); Eosinophils # 0.6 10*3/uL (0.0-0.87); Eosinophils % 6.8 % (0.00-10.9); Hematocrit 34.2 VOL% (35.7-47.0); Hemoglobin 10.6 GM/DL (12.0-16.0); Immature Granulocytes % 1.1 %; Immature Granulocytes Absolute 0.09 #; Lymphocytes # 2.2 10*3/uL (1.4-4.0); Mean Platelet Volume 8.2 FL (9.6-12.0); Monocytes # 0.8 10*3/uL (0.11-0.8); Monocytes % 9.1 % (1.7-12.7); Neutrophils % 56.4 % (38.7-73.9); Platelet Count 372 T/CUMM (130-400); Red Blood Count 3.32 MC/CUMM (3.8-5.5); Red Cell Distribution Width 13.6 % (9.3-17.3); White Blood Count 8.3 T/CUMM (4-12)
[2022-08-24 06:10] LABS: Calcium 8.1 MG/DL (8.5-10.1); Osmolality,Calculated 276.7 MOS/KG (273-304); Potassium 4.5 MMOL/L (3.5-5.1)
[2022-08-24] MEDS: TOPIRAMATE 100 MG TABLET PO SCH (08:25)
[2022-08-24] MEDS: ENOXAPARIN 40 MG/0.4 ML SYRINGE SUBCUT SCH (08:25)
[2022-08-24] MEDS: PANTOPRAZOLE 40 MG TABLET PO SCH (08:26)
[2022-08-24] MEDS: VENLAFAXINE 100 MG PO SCH ×2 (08:26→20:35)
[2022-08-24] MEDS: CLOPIDOGREL 75 MG TABLET PO SCH (08:26)
[2022-08-24] MEDS: SOLIFENACIN 5 MG TABLET PO SCH (08:26)
[2022-08-24] MEDS: FOLIC ACID 1 MG TABLET PO SCH (08:26)
[2022-08-24] MEDS: PHENYTOIN ER 100 MG CAPSULE PO SCH ×3 (08:26→20:33)
[2022-08-24] MEDS: CHOLECALCIFEROL 1,000 UNIT TABLET PO SCH (08:26)
[2022-08-24] MEDS: levETIRAcetam 250 MG TABLET PO SCH (08:26)
[2022-08-24] MEDS: VANCOMYCIN INJ 1,250 MG in SODIUM CHLORIDE 0.9% 250 ML IV SCH (09:50)
[2022-08-24 10:51] LABS: Hemoglobin A1 (Alkaline) 97.4 % (96.5-98.5); Hemoglobin A2 (Alkaline) 2.6 % (1.5-3.5)
[2022-08-24] MEDS: cefTRIAXone 1,000 MG in SODIUM CHLORIDE 0.9% 100 ML IV SCH (14:15)
[2022-08-24] MEDS: levETIRAcetam 500 MG TABLET PO SCH (20:33)
[2022-08-24] MEDS: METOPROLOL TARTRATE 25 MG TABLET PO SCH (20:33)
[2022-08-25 05:47] LABS: Basophils % 0.6 % (0.0-0.8); Eosinophils # 0.4 10*3/uL (0.0-0.87); Eosinophils % 6.2 % (0.00-10.9); Hematocrit 33.7 VOL% (35.7-47.0); Hemoglobin 10.5 GM/DL (12.0-16.0); Immature Granulocytes % 0.9 %; Immature Granulocytes Absolute 0.06 #; Lymphocytes # 1.6 10*3/uL (1.4-4.0); Lymphocytes % 23.1 % (21.3-54.2); Mean Corpuscular HGB Conc 31.2 GM/DL (32-36); Mean Platelet Volume 8.3 FL (9.6-12.0); Monocytes # 0.5 10*3/uL (0.11-0.8); Monocytes % 7.8 % (1.7-12.7); Neutrophils % 61.4 % (38.7-73.9); Platelet Count 322 T/CUMM (130-400); Red Blood Count 3.21 MC/CUMM (3.8-5.5); Red Cell Distribution Width 13.9 % (9.3-17.3); White Blood Count 6.9 T/CUMM (4-12)
[2022-08-25 06:09] LABS: Calcium 8.3 MG/DL (8.5-10.1); Osmolality,Calculated 277.7 MOS/KG (273-304); Potassium 4.1 MMOL/L (3.5-5.1)
[2022-08-25] MEDS: levETIRAcetam 250 MG TABLET PO SCH (09:11)
[2022-08-25] MEDS: CLOPIDOGREL 75 MG TABLET PO SCH (09:11)
[2022-08-25] MEDS: SOLIFENACIN 5 MG TABLET PO SCH (09:11)
[2022-08-25] MEDS: FOLIC ACID 1 MG TABLET PO SCH (09:11)
[2022-08-25] MEDS: CHOLECALCIFEROL 1,000 UNIT TABLET PO SCH (09:11)
[2022-08-25] MEDS: PHENYTOIN ER 100 MG CAPSULE PO SCH ×3 (09:12→20:43)
[2022-08-25] MEDS: ENOXAPARIN 40 MG/0.4 ML SYRINGE SUBCUT SCH (09:12)
[2022-08-25] MEDS: PANTOPRAZOLE 40 MG TABLET PO SCH (09:12)
[2022-08-25] MEDS: TOPIRAMATE 100 MG TABLET PO SCH (09:12)
[2022-08-25] MEDS: VENLAFAXINE 100 MG PO SCH ×2 (09:12→20:44)
[2022-08-25] MEDS: cefTRIAXone 1,000 MG in SODIUM CHLORIDE 0.9% 100 ML IV SCH (15:35)
[2022-08-25] MEDS: levETIRAcetam 500 MG TABLET PO SCH (20:43)
[2022-08-26 05:35] LABS: Basophils # 0.1 10*3/uL (0.0-0.2); Basophils % 0.9 % (0.0-0.8); Eosinophils # 0.4 10*3/uL (0.0-0.87); Eosinophils % 5.6 % (0.00-10.9); Hematocrit 32.5 VOL% (35.7-47.0); Hemoglobin 10.2 GM/DL (12.0-16.0); Immature Granulocytes Absolute 0.07 #; Lymphocytes # 1.6 10*3/uL (1.4-4.0); Lymphocytes % 23.5 % (21.3-54.2); Mean Corpuscular HGB Conc 31.4 GM/DL (32-36); Mean Corpuscular Volume 104.8 FL (87-102); Mean Platelet Volume 8.4 FL (9.6-12.0); Monocytes # 0.7 10*3/uL (0.11-0.8); Monocytes % 10.6 % (1.7-12.7); Neutrophils % 58.4 % (38.7-73.9); Platelet Count 326 T/CUMM (130-400); Red Cell Distribution Width 14.4 % (9.3-17.3); White Blood Count 6.8 T/CUMM (4-12)
[2022-08-26 06:04] LABS: Osmolality,Calculated 282.5 MOS/KG (273-304); Potassium 4.3 MMOL/L (3.5-5.1)
[2022-08-26] MEDS: SOLIFENACIN 5 MG TABLET PO SCH (09:36)
[2022-08-26] MEDS: PHENYTOIN ER 100 MG CAPSULE PO SCH ×2 (09:37→14:35)
[2022-08-26] MEDS: PANTOPRAZOLE 40 MG TABLET PO SCH (09:37)
[2022-08-26] MEDS: FOLIC ACID 1 MG TABLET PO SCH (09:37)
[2022-08-26] MEDS: TOPIRAMATE 100 MG TABLET PO SCH (09:37)
[2022-08-26] MEDS: CLOPIDOGREL 75 MG TABLET PO SCH (09:37)
[2022-08-26] MEDS: CHOLECALCIFEROL 1,000 UNIT TABLET PO SCH (09:37)
[2022-08-26] MEDS: levETIRAcetam 250 MG TABLET PO SCH (09:38)
[2022-08-26] MEDS: VENLAFAXINE 100 MG PO SCH (09:39)
[2022-08-26] MEDS: ENOXAPARIN 40 MG/0.4 ML SYRINGE SUBCUT SCH (09:39)
[2022-08-26 11:18] VITALS: BP 99/62
[2022-08-26] MEDS ORDERED: LEVOFLOXACIN 500 MG TABLET PO SCH (12:30)
[2022-08-26 23:06] LABS: Soluble Transf Receptor (sTfR) 2.6 mg/L (1.8 - 4.6)
== END 2022-08-26 15:30 | disposition swing bed (61) | DRG 603 ==
LOC: N.ED 17:29 → N.EDINP 23:56 → SUATTDRO 23:56 → N.3E 08-21 02:08
PROVIDERS: ADMIT Hospitalist; ATTEND Emergency Medicine